=== PATIENT | female | born 1955 | race Caucasian/White ===

== ENCOUNTER 2020-03-23 11:09 | Outpatient (CLI) | payer MEDICARE, SELFPAY ==
--- NOTE | ~2020-03-23 | XR_ITS ---
EXAMINATION: XR cervical spine 4-5V DATE: 03/23/2020 11:33 INDICATION: Right-sided neck pain. TECHNIQUE: 4 views of cervical spine were obtained. COMPARISON: Cervical spine radiographs of 04/12/2017 FINDINGS: There is 6 degrees levocurvature of cervical spine. There is 2 mm anterolisthesis of C4 on C5 and 2 mm retrolisthesis of C5 on C6 and C6 on C7. Vertebral body heights are normal. There is mild ly decreased disc height at C3-C4 and severely decreased disc height at C5-C6 and C6-C7. There is mul tilevel facet joint osteoarthritis, severe on the right at C4-C5 and bilaterally at C3-C4. There is m ild central canal stenosis at C4-C5, C5-C6, and C6-C7. No prevertebral soft tissue swelling. IMPRESSION: 1. Severe cervical spondylosis. Reviewed, dictated and finalized at location B. 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
== END 2020-03-23 11:10 | disposition home or self-care (01) ==
PROVIDERS: PCP Family Medicine; Visit Provider Family Medicine
DX: M47.892 Other spondylosis, cervical region (principal)
CPT/HCPCS: 72050

== ENCOUNTER 2020-05-26 08:56 | Outpatient (CLI) | payer MEDICARE, SELFPAY ==
--- NOTE | 2020-05-26 11:30 | NEURO_ITS ---
Impression: # Complains of numbness of hands. # Right Carpal Tunnel Syndrome. # Mild evolving left Carpal Tunnel Syndrome. # No ulnar neuropathy. # Normal needle/EMG exam. Nerve Conduction Studies Anti Sensory Summary Table Stim Site NR Peak (ms) P-T Amp (?V) Site1 Site2 Delta-P (ms) Dist (cm) Shawn (m/s) Left Median Anti Sensory (2-3nd Digit) Wrist 3.4 37.6 Wrist 2-3nd Digit 3.4 14.0 41 Wrist 3.4 50.6 Wrist 2-3nd Digit 3.4 14.0 41 Right Median Anti Sensory (2-3nd Digit) Wrist 3.5 33.1 Wrist 2-3nd Digit 3.5 14.0 40 Wrist 3.4 26.2 Wrist 2-3nd Digit 3.5 14.0 40 Left Radial Anti Sensory (Base 1st Digit) Wrist 2.2 10.5 Wrist Base 1st Digit 2.2 0.0 Right Radial Anti Sensory (Base 1st Digit) Wrist 2.0 23.8 Wrist Base 1st Digit 2.0 0.0 Left Ulnar Anti Sensory (5th Digit) Wrist 2.6 17.4 Wrist 5th Digit 2.6 14.0 54 Right Ulnar Anti Sensory (5th Digit) Wrist 2.7 23.1 Wrist 5th Digit 2.7 14.0 52 Motor Summary Table Stim Site NR Onset (ms) O-P Amp (mV) Site1 Site2 Delta-0 (ms) Dist (cm) Shawn (m/s) Left Median Motor (Abd Poll Brev) Wrist 3.5 3.6 Elbow Wrist 4.4 26.0 59 Elbow 7.9 3.0 Right Median Motor (Abd Poll Brev) Wrist 4.1 1.6 Elbow Wrist 4.3 26.0 60 Elbow 8.4 3.0 Left Ulnar Motor (Abd Dig Minimi) Wrist 2.5 5.9 A Elbow Wrist 4.9 30.0 61 A Elbow 7.4 5.0 Right Ulnar Motor (Abd Dig Minimi) Wrist 2.3 6.0 A Elbow Wrist 4.6 27.0 59 A Elbow 6.9 5.3 F Wave Studies NR F-Lat (ms) L-R F-Lat (ms) Left Median (Mrkrs) (Abd Poll Brev) 29.22 0.33 Right Median (Mrkrs) (Abd Poll Brev) 29.55 0.33 Left Ulnar (Mrkrs) (Abd Dig Min) 29.58 0.28 Right Ulnar (Mrkrs) (Abd Dig Min) 29.30 0.28 EMG Side Muscle Nerve Root Ins Act Fibs Amp Dur Recrt Comment Right 1stDorInt Ulnar C8-T1 Nml Nml Nml Nml Nml Right Ext Indicis Radial (Post Int) C7-8 Nml Nml Nml Nml Nml Right Ext Digitorum Radial (Post Int) C7-8 Nml Nml Nml Nml Nml Right BrachioRad Radial C5-6 Nml Nml Nml Nml Nml Right PronatorTeres Median C6-7 Nml Nml Nml Nml Nml Right Abd Poll Brev Median C8-T1 Nml Nml Nml Nml Nml Left 1stDorInt Ulnar C8-T1 Nml Nml Nml Nml Nml Left Ext Indicis Radial (Post Int) C7-8 Nml Nml Nml Nml Nml Left Ext Digitorum Radial (Post Int) C7-8 Nml Nml Nml Nml Nml Left BrachioRad Radial C5-6 Nml Nml Nml Nml Nml Left PronatorTeres Median C6-7 Nml Nml Nml Nml Nml Left Abd Poll Brev Median C8-T1 Nml Nml Nml Nml Nml Left ABD Dig Min Ulnar C8-T1 Nml Nml Nml Nml Nml Right ABD Dig Min Ulnar C8-T1 Nml Nml Nml Nml Nml MTDD
== END 2020-05-26 08:57 | disposition home or self-care (01) ==
PROVIDERS: PCP Family Medicine; Visit Provider Family Medicine
DX: G62.9 Polyneuropathy, unspecified (principal); G56.03 Carpal tunnel syndrome, bilateral upper limbs
CPT/HCPCS: 95886; 95911

== ENCOUNTER → 2020-09-19 12:22 | Outpatient (CLI) | payer MEDICARE, SELFPAY ==
--- NOTE | ~2020-09-19 | XR_ITS ---
XR lumbar spine 2-3V DATE: 09/19/2020 13:10 INDICATION: Low back pain TECHNIQUE: AP, lateral, coned lateral lumbosacral views COMPARISON: 11/05/2012 lumbar spine FINDINGS: There is approximately 25 degrees rotatory levoscoliosis of the lumbar spine. There is severe degenerative disc disease in the lower thoracic and lumbar spine, including prominent eburnation and degenerative spurring as well as vacuum phenomenon at multiple levels. Prominent hypertrophic degenerative change at the lumbar apophyseal joints. There is a transitional first sacral vertebra with sacralization pseudoarthrosis on the right. The sa croiliac joints are normal. No fracture or bone destruction is evident. IMPRESSION: Approximately 25 degrees rotatory levoscoliosis of the lumbar spine with severe degenerat ekta disc disease throughout the lumbar and lower thoracic spine Transitional first sacral vertebra Reviewed, dictated and finalized at location A. IMPRESSION: Approximately 25 degrees rotatory levoscoliosis of the lumbar spine with severe degenerative disc disease throughout the lumbar and lower thoracic spine Transitional first sacral vertebra
== END ==
PROVIDERS: PCP Physician Assistant; Visit Provider Physician Assistant
DX: M51.36 Other intervertebral disc degeneration, lumbar region (principal)
CPT/HCPCS: 72100

== ENCOUNTER → 2020-10-04 17:13 | Outpatient (CLI) | payer MEDICARE, SELFPAY ==
--- NOTE | ~2020-10-04 | MR_ITS ---
EXAMINATION: MR lumbar spine wo con DATE: 10/04/2020 18:28 INDICATION: Low back pain. Lumbar radiculopathy. TECHNIQUE: Magnetic resonance imaging (MRI) of the lumbar spine was performed without intravenous con trast. Sequences included sagittal T2-weighted FSE, sagittal T2-weighted FS FSE, sagittal STIR FSE, s agittal T1-weighted FSE, and axial T2-weighted FSE. COMPARISON: Lumbar spine radiographs 09/19/2020 FINDINGS: There is 20 degrees levoscoliosis of lumbar spine. There is 3 mm retrolisthesis of T12 on L 1 and L1 on L2. There is severely decreased disc height from T9-T10 through L2-L3 and at L4-L5 with e ndplate remodeling. There is moderately decreased disc height at L3-L4 and L5-S1 with endplate remode ling. The distal spinal cord signal intensity is normal. The conus medullaris is at T12. The followin g disc levels are specifically discussed: L1-L2: The disc is bulging. There is severe right and mild left facet joint osteoarthritis. There is moderate right and mild left neural foraminal stenosis. There is mild central canal stenosis. L2-L3: The disc is bulging. There is severe right and moderate left facet joint osteoarthritis. There is mild bilateral neural foraminal stenosis. There is mild central canal stenosis. L3-L4: The disc is bulging and has an annular fissure. There is severe bilateral facet joint osteoart hritis. There is moderate bilateral neural foraminal stenosis. There is moderate central canal stenos is. L4-L5: The disc is bulging and has an annular fissure. There is severe bilateral facet joint osteoart hritis. There is mild right and moderate left neural foraminal stenosis. There is mild central canal stenosis. L5-S1: The disc is bulging. There is severe left facet joint osteoarthritis. There is mild left neura l foraminal stenosis. There is no central canal stenosis. IMPRESSION: 1. Severe thoracolumbar spondylosis. 2. Lumbar levoscoliosis. Reviewed, dictated and finalized at location B.
== END ==
PROVIDERS: PCP Family Medicine; Visit Provider Nurse Practitioner Adult Health
DX: M47.25 Other spondylosis with radiculopathy, thoracolumbar region (principal)
CPT/HCPCS: 72148

== ENCOUNTER 2020-10-20 08:32 | Outpatient (CLI) | payer MEDICARE, SELFPAY ==
--- NOTE | ~2020-10-20 | NM_ITS ---
EXAMINATION: NM roberto carlos stress w perfusion DATE: 10/20/2020 15:18 INDICATION: Chest pain TECHNIQUE: Rest images were obtained following intravenous administration of 10 mCi Tc99m tetrofosmin (Myoview). The patient was infused intravenously with Lexiscan (Regadenoson). Then, 31.1 mCi Tc99m t etrofosmin (Myoview) was administered intravenously, and stress images were obtained. Data was recons tructed into short axis and horizontal and vertical long axis SPECT images. Gated SPECT images were a lso obtained. COMPARISON: None. FINDINGS: There is no definite reversible or fixed perfusion abnormality to suggest ischemia or infar ction. There is normal left ventricular chamber size, wall motion and ejection fraction. Left ventr icular ejection fraction measures 63%. IMPRESSION: 1. Normal myocardial perfusion at rest and during stress. 2. Left ventricular ejection fraction measuring 63%. Reviewed, dictated and finalized at location A.
--- NOTE | 2020-10-20 08:57 | EST_ITS ---
Patient Info Name: Ann Genao Age: 65 years : 1955 Gender: Female Ht: 68 in Wt: 232 lbs BSA: 2.29 m2 Exam Date: 10/20/2020 9:54 AM Exam Location: [facility] Stress Patient Status: Outpatient Admit Date: 10/20/2020 Staff Ordering Physician: Darci Stubbs PA-C Attending Provider: Darci Stubbs PA-C Exercise Technologist: Concha Higgins RDCS Exercise Physician: Brijesh Bhat DO Exam Type: CA stress roberto carlos w NM Study Info Indications R07.9 - Chest pain, unspecified A regadenoson stress test was performed. Summary 1. 1. Negative lexiscan stress test for ischemic ST changes by ECG criteria. 2. 2. Stable hemodynamics throughout the test. 3. 3. Nuclear scan to follow and will be reported separately. Please correlate with it. 4. 4. Patient informed of the above results. Protocol: Lexiscan Stress ECG Details Stage: REST Duration (min): 7 min : 0 sec HR (bpm): 77 SBP (mmHg): 113 DBP (mmHg): 92 Stage: REST Duration (min): 13 min : 12 sec HR (bpm): 72 SBP (mmHg): 113 DBP (mmHg): 92 Stage: STAGE 1 Duration (min): 1 min : 0 sec HR (bpm): 93 SBP (mmHg): 131 DBP (mmHg): 99 Stage: RECOVERY Duration (min): 1 min : 0 sec HR (bpm): 95 SBP (mmHg): 139 DBP (mmHg): 93 Stage: RECOVERY Duration (min): 2 min : 0 sec HR (bpm): 92 SBP (mmHg): 139 DBP (mmHg): 93 Stage: RECOVERY Duration (min): 3 min : 0 sec HR (bpm): 83 SBP (mmHg): 140 DBP (mmHg): 89 Stage: RECOVERY Duration (min): 3 min : 5 sec HR (bpm): 87 SBP (mmHg): 140 DBP (mmHg): 89 Rest HR: 72 bpm Peak HR: 104 bpm Rest Sys BP: 113 mmHg Peak Sys BP: 140 mmHg Max Pred HR: 153 bpm % Max Pred HR: 68 % Target HR: 130 bpm Max RPP: 14,560 bpm*mmHg Termination Reason: Completed protocol Cardiac Symptoms: Shortness of breath Total Time: 1 min : 0 sec Rest Fam BP: 92 mmHg Peak Fam BP: 89 mmHg Total Dose: 0.4 mg Resting ECG Sinus rhythm. Stress ECG No ST changes. Arrhythmias None. Report Signatures
== END 2020-10-20 08:33 | disposition home or self-care (01) ==
PROVIDERS: PCP Family Medicine; Visit Provider Physician Assistant
DX: R07.9 Chest pain, unspecified (principal)
CPT/HCPCS: 78452; 93017; A9502; J2785

== ENCOUNTER → 2020-10-26 13:10 | Outpatient (CLI) | payer MEDICARE, SELFPAY ==
--- NOTE | ~2020-10-26 | MR_ITS ---
EXAMINATION: MR cervical spine wo con EXAM DATE: 10/26/2020 13:55 INDICATION: Neck pain, right arm pain. TECHNIQUE: Multi-sequential, multiplanar MR images of the cervical spine were obtained without contra st. Axial T2, axial T2 MERGE sequence. Sagittal T1, T2, T2 fat saturation images also obtained. Cor relation is made to cervical x-ray 03/23/2020. FINDINGS: There is severe disc disease C5-6 and C6-7. There is 2 mm retrolisthesis C5 on C6, 2 mm an terolisthesis C4 on C5 and C7 on T1. Partial fusion of the C3-4 vertebral bodies and fused facet join ts. The spinal cord signal intensity and intrinsic morphology is normal. Cervicomedullary junction is normal in appearance. There are no suspicious marrow signal abnormalities. Paraspinal soft tissue i s unremarkable. Level by level evaluation: C2-C3: Disc does not extend beyond the endplate margin. Uncovertebral joint arthropathy: None. Facet joint arthropathy: Moderate. Neural foraminal stenosis: No stenosis. Central canal stenosis: No stenosis. C3-C4: This level is fused Uncovertebral joint arthropathy: Mild right, but fused. Facet joint arthropathy: Mild to moderate right, but fused. Neural foraminal stenosis: Mild right. Central canal stenosis: No stenosis. C4-C5: There is a mild diffuse disc bulge. Uncovertebral joint arthropathy: Mild to moderate bilateral right greater than left. Facet joint arthropathy: Severe right, mild left. Neural foraminal stenosis: Moderate right, mild left. Central canal stenosis: No stenosis. C5-C6: There is a mild to moderate diffuse disc bulge asymmetric to the right. Uncovertebral joint arthropathy: Severe left, moderate to severe right. Facet joint arthropathy: Moderate bilateral. Neural foraminal stenosis: Severe left, moderate right. Central canal stenosis: Mild. C6-C7: There is a mild to moderate diffuse disc bulge. Uncovertebral joint arthropathy: Severe bilateral. Facet joint arthropathy: Moderate bilateral. Neural foraminal stenosis: Severe left, moderate to severe right. Central canal stenosis: Mild. C7-T1: Disc does not extend beyond the endplate margin. Uncovertebral joint arthropathy: Moderate left, mild right. Facet joint arthropathy: Moderate bilateral. Neural foraminal stenosis: No stenosis. Central canal stenosis: No stenosis. IMPRESSION: 1. Significant spondylosis C5-6 and 6-7. Reviewed, dictated and finalized at location B.
== END ==
PROVIDERS: PCP Family Medicine; Visit Provider Nurse Practitioner Adult Health
DX: M47.22 Other spondylosis with radiculopathy, cervical region (principal)
CPT/HCPCS: 72141

== ENCOUNTER 2021-03-14 13:57 | Outpatient (CLI) | payer MEDICARE, SELFPAY | END 2021-03-14 13:58 | disposition home or self-care (01) | LOC: ANHBWCAUD 13:59 | PROVIDERS: PCP Family Medicine; Visit Provider Family Medicine | DX: H90.3 Sensorineural hearing loss, bilateral (principal) | CPT/HCPCS: 92557; 92567 ==

== ENCOUNTER → 2021-05-15 10:05 | Outpatient (CLI) | payer MEDICARE, SELFPAY ==
--- NOTE | ~2021-05-15 | XR_ITS ---
XR wrist LT min 3V DATE: 05/15/2021 10:37 INDICATION: Left wrist pain. Primary osteoarthritis. TECHNIQUE: 4 views COMPARISON: None FINDINGS: No fracture, dislocation, periosteal reaction or bone destruction, erosive change or chondr ocalcinosis. IMPRESSION: No significant abnormality Reviewed, dictated and finalized at location A. AL TESTER IMPRESSION: No significant abnormality
--- NOTE | ~2021-05-15 | XR_ITS ---
XR wrist RT min 3V DATE: 05/15/2021 10:37 INDICATION: Pain. Primary osteoarthritis. TECHNIQUE: 4 views COMPARISON: None FINDINGS: There is prominent joint space narrowing as well as some spurring at the first carpometacar pal joint consistent with osteoarthritis. The remaining joints are preserved. No erosive change or ch ondrocalcinosis. No fracture, dislocation, periosteal reaction or bone destruction of the right wrist is detected. IMPRESSION: Osteoarthritis at first carpometacarpal joint Reviewed, dictated and finalized at location A. OPERATOR
== END ==
PROVIDERS: PCP Family Medicine; Visit Provider Plastic Surgery
DX: M19.031 Primary osteoarthritis, right wrist (principal); M19.032 Primary osteoarthritis, left wrist
CPT/HCPCS: 73110

== ENCOUNTER 2021-05-23 14:53 | Outpatient (CLI) | payer MEDICARE, SELFPAY ==
--- NOTE | ~2021-05-23 | XR_ITS ---
EXAMINATION: XR tibia fibula RT 2V INDICATION: Chronic right proximal anterior leg pain TECHNIQUE: Two views of the right tibia and fibula are obtained on three radiographs. COMPARISON: None available FINDINGS: Bone alignment is normal. There is no fracture. There is mild osteoarthritis at the knee an d ankle. The bones are otherwise unremarkable. The soft tissues are normal. IMPRESSION: 1. No radiographic correlate for the patient's symptoms. Reviewed, dictated and finalized at location F. CE ACADEMY PROGRAM COORDINATOR
== END 2021-05-23 14:54 | disposition home or self-care (01) ==
LOC: ANHBWCIMG 14:57
PROVIDERS: PCP Family Medicine; Visit Provider Family Medicine
DX: M89.8X6 Other specified disorders of bone, lower leg (principal)
CPT/HCPCS: 73590

== ENCOUNTER 2021-07-13 14:48 | Outpatient (CLI) | payer MEDICARE, SELFPAY ==
[2021-07-13 19:12] LABS: Hematocrit 37.1 % (37.0-47.0); Hemoglobin 12.9 g/dL (12.0-15.0); Mean Corpuscular HGB Conc 34.8 g/dl (32-36); Mean Corpuscular Hemoglobin 29.6 pg (26-34); Mean Corpuscular Volume 85.1 fl (80-100); Mean Platelet Volume 11.2 fl (7.4-10.4); Platelet Count Result 383 k/mm3 (150-375); Red Blood Count 4.36 M/mm3 (4.2-5.4); Red Cell Distribution Width 14.1 % (11.5-14.5); White Blood Count 9.9 K/mm3 (4.5-10.0)
[2021-07-13 19:45] LABS: Add Urine Microscopic? YES; Appearance Urine Cloudy (Clear); Bilirubin Urine Negative (Negative); Blood Urine Negative (Negative); Color Urine Yellow (Yellow); Glucose Urine UA Negative (Negative); Ketones Urine Negative (Negative); Leukocyte Esterase Ur Trace LEU/UL (NEGATIVE); Nitrate Urine Negative (Negative); Protein Urine Negative (Negative); RBC Urine 0-2 /hpf (0-2); Specific Grav Ur 1.011 (1.001-1.035); Squamous Epithelial Cell Urine Rare /hpf (Few); Urobilinogen Urine Negative mg/dL (<2.0)
[2021-07-13 19:56] LABS: Alanine Aminotransferase 24 U/L (4-35); Albumin Level 4.1 g/dL (3.5-5.1); Alkaline Phosphatase 96 U/L (38-126); Anion Gap 11 mmol/L (8-16); Aspartate Amino Transferase 36 U/L (14-36); Bilirubin,Total 0.5 mg/dL (0.2-1.3); Blood Urea Nitrogen 11 mg/dL (7-17); CRP < 0.5 mg/dL (<1.0); Calcium 9.2 mg/dL (8.4-10.2); Carbon Dioxide 24 mmol/L (22-30); Chloride 101 mmol/L (98-107); Estimated Glomerular Filt Rate > 60; Glucose 102 mg/dL (65-110); Potassium 3.7 mmol/L (3.4-5.0); Sodium 136 mmol/L (137-145)
[2021-07-13 20:12] LABS: Erythrocyte Sedimentation Rate 44 mm/hr (0-20)
[2021-07-13 21:13] LABS: Cholesterol 151 mg/dL (0-200); HDL Direct 61 mg/dL; Triglycerides 203 mg/dL (<150)
[2021-07-13 21:23] LABS: LDL Cholesterol Direct 40 mg/dL
[2021-07-17 19:54] LABS: ANA Cascade Screen Negative (Negative)
== END 2021-07-13 14:49 | disposition home or self-care (01) ==
PROVIDERS: PCP Family Medicine; Visit Provider Family Medicine
DX: N30.90 Cystitis, unspecified without hematuria (principal); M25.519 Pain in unspecified shoulder; M54.16 Radiculopathy, lumbar region; R51.9 Headache, unspecified; R31.9 Hematuria, unspecified; E11.9 Type 2 diabetes mellitus without complications; R53.83 Other fatigue
CPT/HCPCS: 36415; 80053; 80061; 81001; 84443; 85027; 85652; 86038; 86140; 87077; 87086; 87088

== ENCOUNTER 2021-10-25 11:49 | Outpatient (CLI) | payer MEDICARE, SELFPAY ==
--- NOTE | ~2021-10-25 | XR_ITS ---
XR shoulder RT min 2V DATE: 10/25/2021 12:04 INDICATION: Right shoulder pain TECHNIQUE: 4 views COMPARISON: None FINDINGS: No fracture or dislocation, periosteal reaction or bone destruction. Normal alignment at th e miya clavicular and glenohumeral joints. IMPRESSION: No significant abnormality Reviewed, dictated and finalized at location A. IMPRESSION: No significant abnormality
== END 2021-10-25 11:50 | disposition home or self-care (01) ==
PROVIDERS: PCP Family Medicine; Visit Provider Family Medicine
DX: M25.511 Pain in right shoulder (principal)
CPT/HCPCS: 73030

== ENCOUNTER 2022-03-27 14:41 | Outpatient (CLI) | payer MEDICARE, SELFPAY ==
[2022-03-27 18:55] LABS: Appearance Urine Slightly Cloudy (Clear); Bilirubin Urine Negative (Negative); Blood Urine Trace-intact (Negative); Color Urine Yellow (Yellow); Glucose Urine UA Negative (Negative); Ketones Urine Negative (Negative); Leukocyte Esterase Ur Trace LEU/UL (Negative); Nitrate Urine Positive (Negative); Protein Urine Negative (Negative); Urobilinogen Urine 0.2 mg/dL (<2.0); pH Urine 6.5 (5.0-9.0)
[2022-03-27 19:09] LABS: Bacteria Urine Trace /hpf; Mucus Urine Few /lpf; RBC Urine 0-2 /hpf (0-2); Squamous Epithelial Cell Urine Rare /hpf (Few); WBC Urine 51-75 /hpf
[2022-03-27 19:12] LABS: Add Urine Microscopic? YES
== END 2022-03-27 14:42 | disposition home or self-care (01) ==
PROVIDERS: PCP Family Medicine; Visit Provider Family Medicine
DX: R31.9 Hematuria, unspecified (principal)
CPT/HCPCS: 81001; 87077; 87086; 87186

== ENCOUNTER 2022-04-07 13:08 | Outpatient (CLI) | payer MEDICARE, SELFPAY ==
--- NOTE | ~2022-04-07 | MM_ITS ---
EXAMINATION: MM screening christen BI w micheal HISTORY: Screening mammogram TECHNIQUE: Craniocaudal and mediolateral oblique 3-D tomosynthesis images were obtained and synthetic 2-D images were generated. CAD analysis was submitted and interpreted. COMPARISON: 06/17/2018, 04/24/2016, 03/02/2015 bilateral screening mammogram examinations BREAST PARENCHYMAL COMPOSITION: The breasts are almost entirely fatty. FINDINGS: There are scattered bilateral benign calcifications. There is no evidence of suspicious mas s, calcification, or architectural distortion to suggest malignancy in either breast. There has been no suspicious interval change. IMPRESSION: 1. No mammographic evidence of malignancy. 2. Recommend routine screening mammography in one year. BI-RADS Category 2: Benign finding(s). Reviewed, dictated and finalized at location A. CTOR OF MARKETING AND PROMOTIONS
== END 2022-04-07 13:09 | disposition home or self-care (01) ==
LOC: ANHIMG 13:13
PROVIDERS: PCP Family Medicine; Visit Provider Family Medicine
DX: Z12.31 Encounter for screening mammogram for malignant neoplasm of breast (principal)
CPT/HCPCS: 77063; 77067

== ENCOUNTER 2022-07-17 11:00 | Outpatient (RCR) | payer MEDICARE, SELFPAY ==
[2022-07-17 11:05] VITALS: BMI 38.5
[2022-07-17 13:06] VITALS: BMI 38.5
== END 2022-09-27 08:30 | disposition home or self-care (01) ==
LOC: ANHDMC 11:00
PROVIDERS: PCP Family Medicine; Visit Provider Nurse Practitioner Family
DX: E11.42 Type 2 diabetes mellitus with diabetic polyneuropathy (principal); Z71.89 Other specified counseling; Z71.3 Dietary counseling and surveillance
CPT/HCPCS: 97802; G0108

== ENCOUNTER 2022-09-24 10:33 | Outpatient (CLI) | payer MEDICARE, SELFPAY ==
[2022-09-24 19:54] LABS: Hematocrit 40.8 % (37.0-47.0); Hemoglobin 12.9 g/dL (12.0-15.0); Mean Corpuscular HGB Conc 31.6 g/dl (32-36); Mean Corpuscular Hemoglobin 27.5 pg (26-34); Mean Platelet Volume 11.3 fl (7.4-10.4); Platelet Count Result 353 k/mm3 (150-375); Red Blood Count 4.69 M/mm3 (4.2-5.4); Red Cell Distribution Width 14.3 % (11.5-14.5); White Blood Count 7.1 K/mm3 (4.5-10.0)
[2022-09-24 22:20] LABS: Alanine Aminotransferase 27 U/L (6-35); Albumin Level 4.2 g/dL (3.5-5.1); Alkaline Phosphatase 102 U/L (38-126); Anion Gap 9 mmol/L (8-16); Aspartate Amino Transferase 57 U/L (14-36); Bilirubin,Total 0.6 mg/dL (0.2-1.3); Blood Urea Nitrogen 11 mg/dL (7-17); Calcium 9.4 mg/dL (8.4-10.2); Carbon Dioxide 27 mmol/L (22-30); Chloride 101 mmol/L (98-107); Cholesterol 234 mg/dL (0-200); Estimated Glomerular Filt Rate > 60; Glucose 182 mg/dL (65-110); HDL Direct 60 mg/dL; Potassium 3.6 mmol/L (3.4-5.0); Sodium 137 mmol/L (137-145); Triglycerides 171 mg/dL (<150)
[2022-09-24 23:19] LABS: LDL Cholesterol Direct 106 mg/dL
[2022-09-24 23:38] LABS: Hemoglobin A1C 7.1 % (<5.7)
== END 2022-09-24 10:34 | disposition home or self-care (01) ==
LOC: ANHBWCLAB 10:34
PROVIDERS: PCP Family Medicine; Visit Provider Family Medicine
DX: E11.42 Type 2 diabetes mellitus with diabetic polyneuropathy (principal); I25.10 Atherosclerotic heart disease of native coronary artery without angina pectoris; R53.83 Other fatigue; L29.9 Pruritus, unspecified; R21 Rash and other nonspecific skin eruption; T78.40XA Allergy, unspecified, initial encounter
CPT/HCPCS: 36415; 80053; 80061; 83036; 85027; 86003

== ENCOUNTER 2023-02-18 11:18 | Outpatient (CLI) | payer MEDICARE, SELFPAY ==
[2023-02-18 20:19] LABS: Appearance Urine Clear (Clear); Bilirubin Urine Negative (Negative); Blood Urine Negative (Negative); Color Urine Yellow (Yellow); Glucose Urine UA Negative (Negative); Ketones Urine Negative (Negative); Leukocyte Esterase Ur Negative LEU/UL (Negative); Nitrate Urine Negative (Negative); Protein Urine Negative (Negative); Urobilinogen Urine 0.2 mg/dL (<2.0)
[2023-02-18 20:22] LABS: Add Urine Microscopic? NO
== END 2023-02-18 11:19 | disposition home or self-care (01) ==
PROVIDERS: PCP Nurse Practitioner Adult Health; Visit Provider Nurse Practitioner Adult Health
DX: R39.9 Unspecified symptoms and signs involving the genitourinary system (principal)
CPT/HCPCS: 81003

== ENCOUNTER 2023-06-13 11:13 | Outpatient (CLI) | payer MEDICARE, SELFPAY ==
--- NOTE | ~2023-06-13 | XR_ITS ---
XR hip LT min 2V DATE: 06/13/2023 11:25 INDICATION: Left hip pain TECHNIQUE: AP and lateral views COMPARISON: None FINDINGS: Battery pack overlies the left iliac area. Lumbar levoscoliosis and prominent degenerative disc disease at the included L4-5 and L5-S1. Normal alignment at the pubic symphysis and sacroiliac joints. Moderately prominent left joint space narrowing and mild spurring consistent with moderate left hip o steoid arthritis. No fracture, dislocation, avascular necrosis or bone destruction of the left hip is detected. IMPRESSION: Moderate left hip osteoarthritis Levoscoliosis and degenerative disc disease of the lumbar spine Reviewed, dictated and finalized at location L. 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
[2023-06-13 18:58] LABS: Creatine Kinase 84 U/L (30-135)
[2023-06-13 19:31] LABS: Erythrocyte Sedimentation Rate 38 mm/hr (0-20)
[2023-06-13 19:33] LABS: Appearance Urine Clear (Clear); Bacteria Urine None Seen /hpf; Bilirubin Urine Negative (Negative); Blood Urine Negative (Negative); Color Urine Yellow (Yellow); Glucose Urine UA Negative (Negative); Ketones Urine Negative (Negative); Leukocyte Esterase Ur 2+ LEU/UL (NEGATIVE); Nitrate Urine Negative (Negative); Protein Urine Negative (Negative); RBC Urine 0-2 /hpf (0-2); Specific Grav Ur 1.013 (1.001-1.035); Squamous Epithelial Cell Urine Moderate /hpf (Few); WBC Urine 0-5 /hpf (0-3)
[2023-06-13 19:35] LABS: Add Urine Microscopic? YES
== END 2023-06-13 11:14 | disposition home or self-care (01) ==
PROVIDERS: PCP Nurse Practitioner Adult Health; Visit Provider Nurse Practitioner Adult Health
DX: M16.12 Unilateral primary osteoarthritis, left hip (principal); M51.36 Other intervertebral disc degeneration, lumbar region; M79.10 Myalgia, unspecified site; M25.50 Pain in unspecified joint; R53.83 Other fatigue
CPT/HCPCS: 36415; 73502; 81001; 82550; 85652

== ENCOUNTER 2023-08-20 11:07 | Outpatient (CLI) | payer MEDICARE, SELFPAY ==
[2023-08-20 19:16] LABS: Appearance Urine Clear (Clear); Bilirubin Urine Negative (Negative); Blood Urine Negative (Negative); Color Urine Yellow (Yellow); Glucose Urine UA Negative (Negative); Ketones Urine Negative (Negative); Leukocyte Esterase Ur Negative LEU/UL (Negative); Nitrate Urine Negative (Negative); Protein Urine Negative (Negative)
[2023-08-20 19:29] LABS: Add Urine Microscopic? NO
== END 2023-08-20 11:08 | disposition home or self-care (01) ==
LOC: ANHBWCLAB 11:08
PROVIDERS: PCP Nurse Practitioner Adult Health; Visit Provider Nurse Practitioner Adult Health
DX: R39.9 Unspecified symptoms and signs involving the genitourinary system (principal)
CPT/HCPCS: 81003

== ENCOUNTER 2023-09-18 12:22 | Outpatient (CLI) | payer MEDICARE, SELFPAY ==
[2023-09-18 20:56] LABS: Hematocrit 40.8 % (37.0-47.0); Hemoglobin 12.9 g/dL (12.0-15.0); Mean Corpuscular HGB Conc 31.6 g/dl (32-36); Mean Corpuscular Hemoglobin 27.4 pg (26-34); Mean Corpuscular Volume 86.8 fl (80-100); Mean Platelet Volume 11.7 fl (7.4-10.4); Platelet Count Result 344 k/mm3 (150-375); Red Cell Distribution Width 14.8 % (11.5-14.5); White Blood Count 8.7 K/mm3 (4.5-10.0)
[2023-09-18 21:08] LABS: Alanine Aminotransferase 30 U/L (6-35); Albumin Level 4.3 g/dL (3.5-5.1); Alkaline Phosphatase 108 U/L (38-126); Anion Gap 6 mmol/L (4-12); Aspartate Amino Transferase 98 U/L (14-36); Bilirubin,Total 0.7 mg/dL (0.2-1.3); Blood Urea Nitrogen 9 mg/dL (7-17); Calcium 9.3 mg/dL (8.4-10.2); Carbon Dioxide 29 mmol/L (22-30); Chloride 99 mmol/L (98-107); Estimated Glomerular Filt Rate > 60; Glucose 185 mg/dL (65-110); Potassium 3.1 mmol/L (3.4-5.0); Sodium 134 mmol/L (137-145)
== END 2023-09-18 12:23 | disposition home or self-care (01) ==
PROVIDERS: PCP Nurse Practitioner Adult Health; Visit Provider Nurse Practitioner Adult Health
DX: R53.83 Other fatigue (principal)
CPT/HCPCS: 36415; 80053; 84443; 85027

== ENCOUNTER 2023-09-19 12:40 | Outpatient (CLI) | payer MEDICARE, SELFPAY ==
[2023-09-19 19:23] LABS: Potassium 2.9 mmol/L (3.4-5.0)
== END 2023-09-19 12:41 | disposition home or self-care (01) ==
LOC: ANHBWCLAB 12:41
PROVIDERS: PCP Nurse Practitioner Adult Health; Visit Provider Nurse Practitioner Adult Health
DX: E87.6 Hypokalemia (principal)
CPT/HCPCS: 36415; 84132

== ENCOUNTER 2023-12-05 10:24 | Outpatient (CLI) | payer MEDICARE, SELFPAY ==
[2023-12-05 19:24] LABS: Appearance Urine Cloudy (Clear); Bacteria Urine 4+ /hpf; Bilirubin Urine Negative (Negative); Blood Urine Trace (Negative); Color Urine Yellow (Yellow); Glucose Urine UA 3+ mg/dL (Negative); Ketones Urine Negative (Negative); Leukocyte Esterase Ur 2+ LEU/UL (Negative); Need Manual Microscopic Reviewed; Nitrate Urine Negative (Negative); Protein Urine Negative (Negative); RBC Urine 0-2 /hpf (0-2); Specific Grav Ur 1.014 (1.001-1.035); Squamous Epithelial Cell Urine None Seen /hpf (Few); Urobilinogen Urine 0.2 mg/dL (<2.0); WBC Urine >100 /hpf (0-3)
[2023-12-05 19:26] LABS: Add Urine Microscopic? YES
== END 2023-12-05 10:25 | disposition home or self-care (01) ==
PROVIDERS: PCP Nurse Practitioner Adult Health; Visit Provider Nurse Practitioner Family
DX: M54.9 Dorsalgia, unspecified (principal)
CPT/HCPCS: 81001; 87077; 87086; 87088; 87186

== ENCOUNTER 2023-12-11 10:57 | Outpatient (CLI) | payer MEDICARE, SELFPAY ==
[2023-12-11 20:18] LABS: Potassium 3.5 mmol/L (3.4-5.0)
== END 2023-12-11 10:58 | disposition home or self-care (01) ==
PROVIDERS: PCP Nurse Practitioner Adult Health; Visit Provider Obstetrics & Gynecology
DX: E87.6 Hypokalemia (principal)
CPT/HCPCS: 36415; 84132

== ENCOUNTER 2024-03-31 13:00 | Outpatient (RCR) | payer MEDICARE, SELFPAY ==
[2024-03-31 13:04] VITALS: BMI 36.2
[2024-03-31 13:09] VITALS: BMI 36.2
== END 2024-06-08 09:53 | disposition home or self-care (01) ==
LOC: ANHDMC 13:00
PROVIDERS: PCP Nurse Practitioner Adult Health; Visit Provider Internal Medicine Endocrinology, Diabetes & Metabolism
DX: E11.65 Type 2 diabetes mellitus with hyperglycemia (principal); E11.42 Type 2 diabetes mellitus with diabetic polyneuropathy; I10 Essential (primary) hypertension; E55.9 Vitamin D deficiency, unspecified; Z71.89 Other specified counseling; Z71.3 Dietary counseling and surveillance
CPT/HCPCS: 97802; G0108

== ENCOUNTER 2024-07-23 15:10 | Outpatient (CLI) | payer MEDICARE, SELFPAY ==
--- OUTSIDE RECORDS SUMMARY | 2024-07-23 17:02 | XMS_ITS | Clinical Summary ---
Author Organization [facility] Address [address] [place] [address] Care Team Providers Care General House Worker Name Role Phone Wade Meyers MD Primary Care Provider [phone] Allergies Active Allergy Reactions Criticality Noted Date Comments Codeine Nausea and Vomiting 10/19/2018 Penicillins Rash Low 10/19/2018 Sulfa Antibiotics Rash,Itching Low 10/19/2018 Medications hydrocodone-lasha taminophen 5-325 MG tablet Take 1 tablet by mouth every 6 (six) hours as needed for Pain. Active warfarin 2.5 MG tablet Take 2.5 mg by mouth daily. Active paroxetine 40 MG tablet Take 40 mg by mouth every morning. Active lisinopril-hydr ochlorothiazide 10-12.5 MG tablet Take 1 tablet by mouth daily. Active zolpidem 10 MG tablet Take 10 mg by mouth nightly as needed for Sleep. Active nystatin ointment Apply topically 2 (two) times daily. Active ALPRAZolam 0.5 MG tablet Take 0.5 mg by mouth nightly as needed for Sleep. Active omeprazole 40 MG capsule Take 40 mg by mouth daily. Active gabapentin 600 MG tablet Take 600 mg by mouth 2 (two) times daily. Active atorvastatin 40 MG tablet Take 40 mg by mouth nightly at bedtime. Active SITagliptin-met FORMIN HCl (JANUMET) 50-500 MG Tab Take 1 tablet by mouth 2 (two) times daily with meals. Active glimepiride 4 MG tablet Take 4 mg by mouth every morning before breakfast. Active traMADol 50 MG tablet Take 50 mg by mouth every 6 (six) hours as needed for Pain. Active Cholecalciferol (VITAMIN D) 2000 units Tab Activ e vitamin B-12 (CYANOCOBALAMIN ) 1000 mcg tablet Take 1,000 mcg by mouth daily. Active methylPREDNISol one, IRINA, (MEDROL) 4 MG tablet Follow package directions 1 each 9 Active clobetasol 0.05 % cream Apply topically 2 (two) times daily as needed. To rash covering entire body 60 g 9 Active Social History Tobacco Use Types Packs/Day Years Used Date Smoking Tobacco: Never Smokeless Tobacco: Never Alcohol Use Standard Drinks/Week Comments No 0 (1 standard drink = 0.6 oz pur e alcohol) AUDIT-C Answer Date Recorded Frequency of Alcohol Consumption Never 10/19/2018 Average Number of Drinks Not on file 019 Frequency of Binge Drinking Not on file 01/2019 Comments Unknown Sex and Gender Information Value Date Recorded Sex Assigned at Not on file Legal Sex Female 1:45 PM CDT Gender Identity Not on file Sexual Orientation Not on file Last Filed Vital Signs Vital Sign Reading Time Taken Comments Blood Pressure 129/83 10/19/2018 4:06 PM CDT Pulse 81 10/19/2018 4:06 PM CDT Temperature 36.4 C (97.5 F) 10/19/2018 2:41 PM CDT Respiratory Rate 20 10/19/2018 4:06 PM CDT Oxygen Saturation 95% 10/19/2018 4:06 PM CDT Inhaled Oxygen Concentration - - Weight 118.8 kg (262 lb) 10/19/2018 2:41 PM CDT Height 172.7 cm (5' 8 ) 10/19/2018 2:41 PM CDT Body Mass Index 39.84 10/19/2018 2:41 PM CDT Plan of Treatment Health Maintenance Due Date Last Done Comments Colorectal Cancer Screening Colonoscopy (10 Years) 1955 Hepatitis C 1971 DTaP, Tdap and Td Vaccines (1 - Tdap) 1972 Mammogram Screening 1993 Annual Medicare Wellness Visit 2018 Dexa Scan (General) 2018 Pneumococcal Vaccine: 65+ Years (2 of 2 - PCV) 01/17/2020 01/16/2019 COVID-19 Vaccine (3 - season) 2024 09/28/2020, 08/11/2020 Influenza Adult (#1) 2024 04/12/2021, 03/02/2020, 01/16/2019, Additional history exists RSV Immunization or 60+ Years (1 - 1-dose 75+ series) 2028 Zoster Vaccines Completed 12/21/2020, 03/07/2020 Meningococcal B Vaccine Aged Out No l onger eligible based on patient's age to complete this topic Meningococcal Vaccine Aged Out No juliane vera eligible based on patient's age to complete this topic RSV Immunizations Under 20 Months Aged Out No longer eligible based on patient's age to complete this topic Insurance [employer] [facility] Care Teams General House Worker Relationship Specialty Start Date End Date Wade Meyers MD [address] [place] [address] PCP - General FAMILY PRACTICE 06/27/21
--- OUTSIDE RECORDS SUMMARY | 2024-07-23 17:02 | XMS_ITS | Encounter Summary ---
Author Organization [employer] Address 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
--- OUTSIDE RECORDS SUMMARY | 2024-07-23 17:02 | XMS_ITS | Encounter Summary ---
Author Organization [employer] Address 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
--- OUTSIDE RECORDS SUMMARY | 2024-07-23 17:02 | XMS_ITS | Encounter Summary ---
Author Organization [employer] Address 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
--- OUTSIDE RECORDS SUMMARY | 2024-07-23 17:02 | XMS_ITS | Clinical Summary ---
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
--- OUTSIDE RECORDS SUMMARY | 2024-07-23 17:02 | XMS_ITS | Encounter Summary ---
Author Organization [employer] Address 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
--- OUTSIDE RECORDS SUMMARY | 2024-07-23 17:02 | XMS_ITS | Clinical Summary ---
Author Organization [facility] Address [address] [place] [address] Phone Care Team Providers Care Purchasing Specialist Name Role Phone Wade Meyers MD Primary Care Provider [phone] Allergies Active Allergy Reactions Criticality Noted Date Comments Codeine Nausea,Unknown 2016 Penicillins Itching,Unknown 2016 Sulfa Antibiotics Itching 2016 Medications gabapentin (NEURONTIN) 300 MG Capsule Take 1 Cap by mouth 3 times daily. 04/10/2016 Active glimepiride (AMARYL) 4 MG Tablet Take 4 mg by mouth daily. 01/31/2016 Active lisinopril-hydro CHLOROthiazide (PRINZIDE, ZESTORETIC) 20-12.5 MG Tablet Take 1 Tab by mouth daily. 02/17/2016 Active omeprazole (PRILOSEC) 40 MG CAPSULE DELAYED RELEASE Take 1 Cap by mouth daily. 01/31/2016 Active PARoxetine (PAXIL) 40 MG Tablet Take 1 Tab by mouth daily. 01/31/2016 Active warfarin (COUMADIN) 2.5 MG Tablet Take 1 Tab by mouth daily. 02/17/2016 Active zolpidem (AMBIEN) 10 MG Tablet Take 10 mg by mouth daily. 04/30/2016 Active atorvastatin (LIPITOR) 40 MG Tablet Take 1 Tab by mouth daily. 04/10/2016 Active HYDROmorphone (DILAUDID) 2 MG Tablet Take 1 Tab by mouth every 3 hours as needed. 30 Tab 0 05/30/2016 Active Family History Medical History Relation Name Comments Heart Attack Father Heart Attack Mother Relation Name Status Comments Father Mother Social History Tobacco Use Types Packs/Day Years Used Date Smoking Tobacco: Never Smokeless Tobacco: Never Alcohol Use Standard Drinks/Week Comments No 0 (1 standard drink = 0.6 oz pur e alcohol) Comments Unknown Sex and Gender Information Value Date Recorded Sex Assigned at Not on file Legal Sex Female 11:41 PM CDT Gender Identity Not on file Sexual Orientation Not on file Last Filed Vital Signs Vital Sign Reading Time Taken Comments Blood Pressure 120/82 05/30/2016 11:45 AM OVERAGE SHORTAGE AND DAMAGE CLERK Pulse 72 05/30/2016 11:45 AM OVERAGE SHORTAGE AND DAMAGE CLERK Temperature 36.2 C (97.2 F) 05/30/2016 11:45 AM OVERAGE SHORTAGE AND DAMAGE CLERK Respiratory Rate 16 05/30/2016 11:45 AM OVERAGE SHORTAGE AND DAMAGE CLERK Oxygen Saturation 96% 05/30/2016 11:45 AM OVERAGE SHORTAGE AND DAMAGE CLERK Inhaled Oxygen Concentration - - Weight 124.3 kg (274 lb) 2016 9:00 AM OVERAGE SHORTAGE AND DAMAGE CLERK Height 172.7 cm (5' 8 ) 2016 9:00 AM OVERAGE SHORTAGE AND DAMAGE CLERK Body Mass Index 41.66 2016 9:00 AM OVERAGE SHORTAGE AND DAMAGE CLERK Plan of Treatment Health Maintenance Due Date Last Done Comments DEXA Bone Density 1955 Hepatitis C Virus (HCV) Screening 1955 TdaP Immunization 1955 Colonoscopy 1998 Colorectal Cancer Screening 1998 Cologuard 2003 Immunochemical Fecal Occult Blood 2003 Mammogram 2003 Pneumococcal Immunization (5 0+ years) (1 of 1 - PCV) 2003 Zoster Immunization (1 of 2) 2003 Influenza Immunization (#1) 2024 SARS-COV-2 Immunization (1 - 2023-25 season) 2024 Respiratory Syncytial Virus (RSV) Immunization (Adult) (1 - 1-dose 75+ series) 2028 Hepatitis B Immunization Aged Out No longer eligible based on patient's age to complete this topic Meningococcal Immunization (ACWY) Aged Out No longer eligible based on patient's age to complete this topic Rotavirus Immunization Aged Out No lo nger eligible based on patient's age to complete this topic Medical Devices Implanted Type Area Document Review Specialist Device Identifier Shelf Expiration Date Model / Serial / Lot K-Wire Plain .062 - [id number] Implanted:Qty: 2 on 05/30/2016 by Edson Mays DPM at [facility] IMPLANT Right: Foot [employer] [id number] / / [id number] Trilliant 0.045 Double End K-Wire Implanted:Qty: 1 on 05/30/2016 by Edson Mays DPM at [facility] Right: Toe [id number] / / [id number] 3.4 X 10mm Ht Implant Implanted:Qty: 1 on 05/30/2016 by Edson Mays DPM at [facility] Right: Toe / / Description:[facility] Insurance MEDICARE [facility] on file Care Teams Purchasing Specialist Relationship Specialty Start Date End Date Wade Meyers MD [address] [place] [address] PCP - General Family Medicine 05/23/16
--- OUTSIDE RECORDS SUMMARY | 2024-07-23 17:02 | XMS_ITS | Encounter Summary ---
Author Organization [facility] Address 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
--- OUTSIDE RECORDS SUMMARY | 2024-07-23 17:02 | XMS_ITS | Clinical Summary ---
Author Organization [facility] Address [address] [place] [address] Care Team Providers Care Streetsweeper Operator Name Role Phone Lenin Hirsch MD Primary Care Provider [phone] [phone] Allergies Active Allergy Reactions Criticality Noted Date Comments Ezetimibe Unknown 06/04/2023 Penicillins Itching Low 06/04/2023 Ranitidine Unknown 06/04/2023 Simvastatin Unknown 06/04/2023 Medications No known medications Active Problems Problem Noted Date Diagnosed Date Scalp laceration, initial encounter 05/15/2024 Scalp hematoma, initial encounter 05/15/2024 Head injury, initial encounter 05/15/2024 DDD (degenerative disc disease), cervical 2024 Sprain of ribs, initial encounter 05/15/2024 Encounters Date Type Department Care Team Description 05/15/2024 3:15 PM WAREHOUSE LEAD - 05/15/2024 3:47 PM [facility] Emergency [facility] Emergency Department [address] [place] [address] Scalp laceration, initial encounter (Primary Dx); Scalp hematoma, initial encounter; Head injury, initial encounter; DDD (degenerative disc disease), cervical; Sprain of ribs, initial encounter Discharge Disposition: Discharge to home or self care from Last 3 Months Social History Tobacco Use Types Packs/Day Years Used Date Smoking Tobacco: Never Assessed Personal Safety Answer Date Recorded Have you ever been in or are you currently in a harmful physical or emotional relationship or is someone making you feel afraid or unsafe? Denies 05/15/2024 Comments Unknown Sex and Gender Information Value Date Recorded Sex Assigned at Not on file Legal Sex Female 3:21 PM WAREHOUSE LEAD Gender Identity Not on file Sexual Orientation Not on file Obstetrics History Last Filed Vital Signs Vital Sign Reading Time Taken Comments Blood Pressure 186/86 05/15/2024 1:25 PM WAREHOUSE LEAD Pulse 68 05/15/2024 1:25 PM WAREHOUSE LEAD Temperature 36.8 C (98.3 F) 05/15/2024 1:25 PM WAREHOUSE LEAD Respiratory Rate 14 05/15/2024 1:25 PM WAREHOUSE LEAD Oxygen Saturation 99% 05/15/2024 1:25 PM WAREHOUSE LEAD Inhaled Oxygen Concentration - - Weight 104.3 kg (230 lb) 05/15/2024 1:25 PM WAREHOUSE LEAD Height 167.6 cm (5' 6 ) 05/15/2024 1:25 PM WAREHOUSE LEAD Body Mass Index 37.12 05/15/2024 1:25 PM WAREHOUSE LEAD Plan of Treatment Health Maintenance Due Date Last Done Comments Breast Cancer Screening-Mammogram 1953 Colon Cancer Screening-Colonoscopy 1953 Depression Screening 1953 Fall Risk Assessment 1953 Hepatitis C Screening 1953 Osteoporosis Screening-Bone Density Scan 1953 DTaP/Tdap/Td Vaccine (1 - Tdap) 1964 Hepatitis B Screening 1971 Well Visit 65+ 2018 Pneumococcal vaccine 65+ (2 of 2 - PCV) 01/17/2020 01/16/2019 Zoster Vaccine (2 of 2) 05/02/2020 03/07/2020 Influenza Vaccine (#1) 2024 0, 01/16/2019, 03/19/2018 Procedures Procedure Name Priority Date/Time Associated Diagnosis Comments CT CERVICAL SPINE WO CONTRAST ED 05/15/2024 2:[address] HEAD WO CONTRAST ED 05/15/2024 2 :20 PM WAREHOUSE LEAD XR RIBS RIGHT W PA CHEST ED 05/15/2024 1:50 PM WAREHOUSE LEAD from Last 3 Months Results * CT Cervical Spine WO Contrast (05/15/2024 2:20 PM WAREHOUSE LEAD) Anatomical Region Laterality Modality Spine N/A Computed Tomogra phy 05/15/2024 2:28 PM WAREHOUSE LEAD Narrative 05/15/2024 2:38 PM WAREHOUSE LEAD EXAM DESCRIPTION: CT HEAD WO CONTRAST; CT CERVICAL SPINE WO CONTRAST REASON FOR STUDY: Accidental fall with head injury. Fall today, hit back of head on dresser, denies LOC and neck pain ; Accidental fall with head injury Fall today, hit back of head on dresser, denies LOC and neck pain TECHNIQUE: Axial images acquired through the brain without intravenous contrast. Axial images through the cervical spine with sagittal and coronal reformatted images. Images stored on PACS. Automated exposure control was used as a dose optimization technique for this examination. COMPARISON: None FINDINGS: HEAD BRAIN: No gross intraparenchymal hemorrhage, mass or edema. Grossly normal turner-white differentiation. No hydrocephalus. EXTRA-AXIAL SPACES: Prominent extra-axial spaces within the medial right frontal lobe. No evidence of acute subdural hematoma. CALVARIUM: Hyperostosis. No depressed skull fracture seen. SINUSES/MASTOIDS: Moderate mucosal thickening within the left sphenoid sinuses. ORBITS: No significant abnormality. CERVICAL SPINE ALIGNMENT: Trace anterolisthesis of C3-4. Mild anterolisthesis of C4-5. Mild retrolisthesis of C5-6. VERTEBRAE: No acute fracture seen. Small anterior discontinuous osteophytes are noted. DISCS: Moderate to severe C5-6 and C6-7 degenerative disc disease. HARDWARE: Spinal cord stimulator leads terminate at the level of C5 LUNG APICES: No significant abnormality. NECK SOFT TISSUES: Nonspecific cervical lymph nodes. OTHER: No other significant findings. IMPRESSION: 1. No gross acute intracranial abnormality. 2. No gross acute osseous abnormality of the cervical spine. THIS IS AN ELECTRONICALLY VERIFIED FINAL REPORT 05/15/2024 2:38 PM - Electronically signed by Jonny Ramirez M.D. AG: ERIKA Report ID: [id number] Reading Location: [id number] Procedure Note Jonny Ramirez MD - 05/15/2024 EXAM DESCRIPTION: CT HEAD WO CONTRAST; CT CERVICAL SPINE WO CONTRAST REASON FOR STUDY: Accidental fall with head injury. Fall today, hit back of head on dresser, denies LOC and neck pain ; Accidental fall with head injury Fall today, hit back of head on dresser, denies LOC and neck pain TECHNIQUE: Axial images acquired through the brain without intravenous contrast. Axial images through the cervical spine with sagittal andcoronal reformatted images. Images stored on PACS. Automated exposure control was used as a dose optimization technique for this examination. COMPARISON: None FINDINGS: HEAD BRAIN: No gross intraparenchymal hemorrhage, mass or edema. Grossly normal turner-white differentiation. No hydrocephalus. EXTRA-AXIAL SPACES: Prominent extra-axial spaces within the medial right frontal lobe. No evidence of acute subdural hematoma. CALVARIUM: Hyperostosis. No depressed skull fracture seen. SINUSES/MASTOIDS: Moderate mucosal thickening within the left sphenoid sinuses. ORBITS: No significant abnormality. CERVICAL SPINE ALIGNMENT: Trace anterolisthesis of C3-4. Mild anterolisthesis of C4-5. Mild retrolisthesis of C5-6. VERTEBRAE: No acute fracture seen. Small anterior discontinuousosteophytes are noted. DISCS: Moderate to severe C5-6 and C6-7 degenerative disc disease. HARDWARE: Spinal cord stimulator leads terminate at the level of C5 LUNG APICES: No significant abnormality. NECK SOFT TISSUES: Nonspecific cervical lymph nodes. OTHER: No other significant findings. IMPRESSION: 1. No gross acute intracranial abnormality. 2. No gross acute osseous abnormality of the cervical spine. THIS IS AN ELECTRONICALLY VERIFIED FINAL REPORT 05/15/2024 2:38 PM - Electronically signed by Jonny Ramirez M.D. AG: ERIKA Report ID: [id number] Reading Location: [id number] Reji CRISTINA IMG CT PROCEDURES Final Resu lt * CT Head WO Contrast (05/15/2024 2:20 PM WAREHOUSE LEAD) Anatomical Region Laterality Modality Head and Neck N/A Computed Tomogra phy 05/15/2024 2:28 PM WAREHOUSE LEAD Narrative 05/15/2024 2:38 PM WAREHOUSE LEAD EXAM DESCRIPTION: CT HEAD WO CONTRAST; CT CERVICAL SPINE WO CONTRAST REASON FOR STUDY: Accidental fall with head injury. Fall today, hit back of head on dresser, denies LOC and neck pain ; Accidental fall with head injury Fall today, hit back of head on dresser, denies LOC and neck pain TECHNIQUE: Axial images acquired through the brain without intravenous contrast. Axial images through the cervical spine with sagittal and coronal reformatted images. Images stored on PACS. Automated exposure control was used as a dose optimization technique for this examination. COMPARISON: None FINDINGS: HEAD BRAIN: No gross intraparenchymal hemorrhage, mass or edema. Grossly normal turner-white differentiation. No hydrocephalus. EXTRA-AXIAL SPACES: Prominent extra-axial spaces within the medial right frontal lobe. No evidence of acute subdural hematoma. CALVARIUM: Hyperostosis. No depressed skull fracture seen. SINUSES/MASTOIDS: Moderate mucosal thickening within the left sphenoid sinuses. ORBITS: No significant abnormality. CERVICAL SPINE ALIGNMENT: Trace anterolisthesis of C3-4. Mild anterolisthesis of C4-5. Mild retrolisthesis of C5-6. VERTEBRAE: No acute fracture seen. Small anterior discontinuous osteophytes are noted. DISCS: Moderate to severe C5-6 and C6-7 degenerative disc disease. HARDWARE: Spinal cord stimulator leads terminate at the level of C5 LUNG APICES: No significant abnormality. NECK SOFT TISSUES: Nonspecific cervical lymph nodes. OTHER: No other significant findings. IMPRESSION: 1. No gross acute intracranial abnormality. 2. No gross acute osseous abnormality of the cervical spine. THIS IS AN ELECTRONICALLY VERIFIED FINAL REPORT 05/15/2024 2:38 PM - Electronically signed by Jonny Ramirez M.D. AG: ERIKA Report ID: [id number] Reading Location: [id number] Procedure Note Jonny Ramirez MD - 05/15/2024 EXAM DESCRIPTION: CT HEAD WO CONTRAST; CT CERVICAL SPINE WO CONTRAST REASON FOR STUDY: Accidental fall with head injury. Fall today, hit back of head on dresser, denies LOC and neck pain ; Accidental fall with head injury Fall today, hit back of head on dresser, denies LOC and neck pain TECHNIQUE: Axial images acquired through the brain without intravenous contrast. Axial images through the cervical spine with sagittal andcoronal reformatted images. Images stored on PACS. Automated exposure control was used as a dose optimization technique for this examination. COMPARISON: None FINDINGS: HEAD BRAIN: No gross intraparenchymal hemorrhage, mass or edema. Grossly normal turner-white differentiation. No hydrocephalus. EXTRA-AXIAL SPACES: Prominent extra-axial spaces within the medial right frontal lobe. No evidence of acute subdural hematoma. CALVARIUM: Hyperostosis. No depressed skull fracture seen. SINUSES/MASTOIDS: Moderate mucosal thickening within the left sphenoid sinuses. ORBITS: No significant abnormality. CERVICAL SPINE ALIGNMENT: Trace anterolisthesis of C3-4. Mild anterolisthesis of C4-5. Mild retrolisthesis of C5-6. VERTEBRAE: No acute fracture seen. Small anterior discontinuousosteophytes are noted. DISCS: Moderate to severe C5-6 and C6-7 degenerative disc disease. HARDWARE: Spinal cord stimulator leads terminate at the level of C5 LUNG APICES: No significant abnormality. NECK SOFT TISSUES: Nonspecific cervical lymph nodes. OTHER: No other significant findings. IMPRESSION: 1. No gross acute intracranial abnormality. 2. No gross acute osseous abnormality of the cervical spine. THIS IS AN ELECTRONICALLY VERIFIED FINAL REPORT 05/15/2024 2:38 PM - Electronically signed by Jonny Ramirez M.D. AG: ERIKA Report ID: [id number] Reading Location: [id number] Reji CRISTINA IMNatalya CT PROCEDURES Final Resu lt * XR Ribs Right W PA Chest 3 or More Views (05/15/2024 1:50 PM WAREHOUSE LEAD) Anatomical Region Laterality Modality Rib, Chest Right Computed Radiogr aphy 05/15/2024 2:02 PM WAREHOUSE LEAD Narrative 05/15/2024 2:07 PM WAREHOUSE LEAD EXAM DESCRIPTION: XR RIBS RIGHT W PA CHEST REASON FOR STUDY: fall c/o a fall today. Pt reports she went to sit down and fell hitting her head on a dresser and hitting her right side. Pt reports right sided rib pain and has a laceration on the top of her head. TECHNIQUE: PA view(s) of the two views right ribs COMPARISON: No comparison. FINDINGS: No acute fracture. No pneumothorax. Normal heart and mediastinal contours. Epidural spinal stimulator leads over the spinal canal. IMPRESSION: No acute rib fracture. THIS IS AN ELECTRONICALLY VERIFIED FINAL REPORT 05/15/2024 2:07 PM - Electronically signed by Diane Bui M.D. LC: UYEN Report ID: [id number] Reading Location: [id number] Procedure Note Yennifer Bui MD - 05/15/2024 EXAM DESCRIPTION: XR RIBS RIGHT W PA CHEST REASON FOR STUDY: fall c/o a fall today. Pt reports she went to sit down and fell hitting herhead on a dresser and hitting her right side. Pt reports right sided rib pain andhas a laceration on the top of her head. TECHNIQUE: PA view(s) of the two views right ribs COMPARISON: No comparison. FINDINGS: No acute fracture. No pneumothorax. Normal heart and mediastinalcontours. Epidural spinal stimulator leads over the spinal canal. IMPRESSION: No acute rib fracture. THIS IS AN ELECTRONICALLY VERIFIED FINAL REPORT 05/15/2024 2:07 PM - Electronically signed by Diane Bui M.D. LC: UYEN Report ID: [id number] Reading Location: [id number] Man Bassett MD IMG XR PROCEDURES Final Resu lt from Last 3 Months Insurance MEDICARE [facility] MEDICARE Address: [facility] [address] [place] [address] Care Teams Streetsweeper Operator Relationship Specialty Start Date End Date Lenin Hirsch MD PCP - General Family Practice 12/03/22
--- OUTSIDE RECORDS SUMMARY | 2024-07-23 17:02 | XMS_ITS | Encounter Summary ---
Author Organization [employer] Address 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
--- OUTSIDE RECORDS SUMMARY | 2024-07-23 17:02 | XMS_ITS | Encounter Summary ---
Author Organization [employer] [facility] Address 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
--- OUTSIDE RECORDS SUMMARY | 2024-07-23 17:02 | XMS_ITS | Encounter Summary ---
Author Organization [email or web address] Address [address] [place] [address] Care Team Providers Care Chocolate Packer Name Role Phone Unavailable Primary Care Provider Unavailabl e Encounter Details Date Type Department Care Team (Latest Contact Info) Description 02/23/1999 Outpatient Historical HIS CHRONIC PAIN MNGT Marty Ledezma MD [address] [place] [address] Myalgia and myositis, unspecified (Primary Dx) Social History Tobacco Use Types Packs/Day Years Used Date Smoking Tobacco: Never Assessed Comments Unknown Sex and Gender Information Value Date Recorded Sex Assigned at Not on file Legal Sex Female 4:47 AM PRACTICE ARCHITECT Gender Identity Not on file Sexual Orientation Not on file documented as of this encounter Plan of Treatment Not on file documented as of this encounter Visit Diagnoses Diagnosis Myalgia and myositis, unspecified- Primary Mylagia and myositis, unspecified documented in this encounter
--- OUTSIDE RECORDS SUMMARY | 2024-07-23 17:02 | XMS_ITS | Encounter Summary ---
Author Organization [employer] Address 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
--- OUTSIDE RECORDS SUMMARY | 2024-07-23 17:02 | XMS_ITS | Encounter Summary ---
Author Organization [employer] Address 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
--- OUTSIDE RECORDS SUMMARY | 2024-07-23 17:02 | XMS_ITS | Encounter Summary ---
Author Organization [facility] Address [address] [place] [address] Care Team Providers Care Lamination Inspector Name Role Phone Unavailable Primary Care Provider Unavailabl e Encounter Details Date Type Department Care Team (Latest Contact Info) Description 06/06/1999 Outpatient Historical HIS CHRONIC PAIN MNMarty Sherwood MD [address] [place] [address] Myalgia and myositis, unspecified (Primary Dx) Social History Tobacco Use Types Packs/Day Years Used Date Smoking Tobacco: Never Assessed Comments Unknown Sex and Gender Information Value Date Recorded Sex Assigned at Not on file Legal Sex Female 4:47 AM SYRUP BLENDER Gender Identity Not on file Sexual Orientation Not on file documented as of this encounter Plan of Treatment Not on file documented as of this encounter Visit Diagnoses Diagnosis Myalgia and myositis, unspecified- Primary Mylagia and myositis, unspecified documented in this encounter
--- OUTSIDE RECORDS SUMMARY | 2024-07-23 17:02 | XMS_ITS | Referral Summary ---
Author Organization [facility] Address [address] [place] [address] Care Team Providers Care Telephone Clerk Name Role Phone Lenin Hirsch MD Primary Care Provider [phone] Encounters Date Type Department Care Team Description 05/15/2024 3:15 PM REHABILITATION MEDICINE PHYSICIAN - 05/15/2024 3:47 PM REHABILITATION MEDICINE PHYSICIAN Emergency [facility] Emergency Department [address] [place] [address] Scalp laceration, initial encounter (Primary Dx); Scalp hematoma, initial encounter; Head injury, initial encounter; DDD (degenerative disc disease), cervical; Sprain of ribs, initial encounter Discharge Disposition: Discharge to home or self care from Last 3 Months Allergies Active Allergy Reactions Criticality Noted Date Comments Ezetimibe Unknown 06/04/2023 Penicillins Itching Low 06/04/2023 Ranitidine Unknown 06/04/2023 Simvastatin Unknown 06/04/2023 Medications No known medications Active Problems Problem Noted Date Diagnosed Date Scalp laceration, initial encounter 05/15/2024 Scalp hematoma, initial encounter 05/15/2024 Head injury, initial encounter 05/15/2024 DDD (degenerative disc disease), cervical 2024 Sprain of ribs, initial encounter 05/15/2024 Social History Tobacco Use Types Packs/Day Years [...] on file Legal Sex Female 3:21 PM REHABILITATION MEDICINE PHYSICIAN Gender Identity Not on file Sexual Orientation Not on file Last Filed Vital Signs Vital Sign Reading Time Taken Comments Blood Pressure 186/86 05/15/2024 1:25 PM REHABILITATION MEDICINE PHYSICIAN Pulse 68 05/15/2024 1:25 PM REHABILITATION MEDICINE PHYSICIAN Temperature 36.8 C (98.3 F) 05/15/2024 1:25 PM REHABILITATION MEDICINE PHYSICIAN Respiratory Rate 14 05/15/2024 1:25 PM REHABILITATION MEDICINE PHYSICIAN Oxygen Saturation 99% 05/15/2024 1:25 PM REHABILITATION MEDICINE PHYSICIAN Inhaled Oxygen Concentration - - Weight 104.3 kg (230 lb) 05/15/2024 1:25 PM REHABILITATION MEDICINE PHYSICIAN Height 167.6 cm (5' 6 ) 05/15/2024 1:25 PM REHABILITATION MEDICINE PHYSICIAN Body Mass Index 37.12 05/15/2024 1:25 PM REHABILITATION MEDICINE PHYSICIAN Plan of Treatment Not on file Procedures Procedure Name Priority Date/Time Associated Diagnosis Comments CT CERVICAL SPINE WO CONTRAST ED 05/15/2024 2:20 PM REHABILITATION MEDICINE PHYSICIAN CT HEAD WO CONTRAST ED 05/15/2024 2 :20 PM REHABILITATION MEDICINE PHYSICIAN XR RIBS RIGHT W PA CHEST ED 05/15/2024 1:50 PM REHABILITATION MEDICINE PHYSICIAN from Last 3 Months Results * CT Cervical Spine WO Contrast (05/15/2024 2:20 PM REHABILITATION MEDICINE PHYSICIAN) Anatomical Region Laterality Modality Spine N/A Computed Tomogra phy 05/15/2024 2:28 PM REHABILITATION MEDICINE PHYSICIAN Narrative 05/15/2024 2:38 PM REHABILITATION MEDICINE PHYSICIAN EXAM DESCRIPTION: CT HEAD WO CONTRAST; CT [...] Electronically signed by Jonny Ramirez M.D. AG: AG Report ID: [id number] Reading Location: [id number] Procedure Note Jonny Ramirez MD - 05/15/2024 [...] Electronically signed by Jonny Ramirez M.D. AG: AG Report ID: [id number] Reading Location: [id number] [address] IM[address] PROCEDURES Final Resu lt * CT Head WO Contrast (05/15/2024 2:20 PM REHABILITATION MEDICINE PHYSICIAN) Anatomical Region Laterality Modality Head and Neck N/A Computed Tomogra phy 05/15/2024 2:28 PM REHABILITATION MEDICINE PHYSICIAN Narrative 05/15/2024 2:38 PM REHABILITATION MEDICINE PHYSICIAN EXAM DESCRIPTION: CT HEAD WO CONTRAST; CT [...] Jonny Ramirez M.D. AG: ERIKA Report ID: [id number] Reading Location: [id number] Procedure Note Jonny Ramirez MD - 05/15/2024 [...] Electronically signed by Jonny Ramirez M.D. AG: AG Report ID: [id number] Reading Location: [id number] [address] [address] IMG CT PROCEDURES Final Resu lt * XR Ribs Right W PA Chest 3 or More Views (05/15/2024 1:50 PM REHABILITATION MEDICINE PHYSICIAN) Anatomical Region Laterality Modality Rib, Chest Right Computed Radiogr aphy 05/15/2024 2:02 PM REHABILITATION MEDICINE PHYSICIAN Narrative 05/15/2024 2:07 PM REHABILITATION MEDICINE PHYSICIAN EXAM DESCRIPTION: XR RIBS RIGHT W PA [...] Diane Bui M.D. LC: UYEN Report ID: [id number] Reading Location: [id number] Procedure Note Yennifer Bui MD - 05/15/2024 [...] Diane Bui M.D. LC: UYEN Report ID: [id number] Reading Location: [id number] Man Bassett MD IMG XR PROCEDURES Final Resu lt from Last 3 Months Insurance MEDICARE [employer] Care Teams Telephone Clerk Relationship Specialty Start Date End Date Lenin Hirsch MD PCP - General Family Practice 12/03/22
[2024-07-23 19:06] LABS: Add Urine Microscopic? YES; Appearance Urine Clear (Clear); Bacteria Urine None Seen /hpf; Bilirubin Urine Negative (Negative); Blood Urine Negative (Negative); Color Urine Yellow (Yellow); Glucose Urine UA Negative (Negative); Ketones Urine Negative (Negative); Leukocyte Esterase Ur Trace LEU/UL (Negative); Nitrate Urine Negative (Negative); Non Pathogenic Casts 0-2; Protein Urine Negative (Negative); RBC Urine 0-2 /hpf (0-2); Specific Grav Ur 1.009 (1.001-1.035); Squamous Epithelial Cell Urine None Seen /hpf (Few); WBC Urine 0-5 /hpf (0-3); pH Urine 7.5 (5.0-9.0)
== END 2024-07-23 15:11 | disposition home or self-care (01) ==
PROVIDERS: PCP Nurse Practitioner Adult Health; Visit Provider Nurse Practitioner Adult Health
DX: R39.9 Unspecified symptoms and signs involving the genitourinary system (principal)
CPT/HCPCS: 81001; 87086

== ENCOUNTER 2024-09-22 11:28 | Outpatient (CLI) | payer MEDICARE, SELFPAY ==
--- OUTSIDE RECORDS SUMMARY | 2024-09-22 11:50 | XMS_ITS | Encounter Summary ---
Author Organization [facility] [facility] Address 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
--- OUTSIDE RECORDS SUMMARY | 2024-09-22 11:50 | XMS_ITS | Referral Summary ---
Author Organization [facility] Address [address] [place] [address] Care Team Providers Care Grease And Tallow Pumper Name Role Phone Lenin Hirsch MD Primary Care Provider [phone] Allergies Active Allergy Reactions Criticality Noted Date [...] on file Legal Sex Female 3:21 PM READING SPECIALIST Gender Identity Not on file Sexual Orientation Not on file Last Filed Vital Signs Vital Sign Reading Time Taken Comments Blood Pressure 186/86 05/15/2024 1:25 PM READING SPECIALIST Pulse 68 05/15/2024 1:25 PM READING SPECIALIST Temperature 36.8 C (98.3 F) 05/15/2024 1:25 PM READING SPECIALIST Respiratory Rate 14 05/15/2024 1:25 PM READING SPECIALIST Oxygen Saturation 99% 05/15/2024 1:25 PM READING SPECIALIST Inhaled Oxygen Concentration - - Weight 104.3 kg (230 lb) 05/15/2024 1:25 PM READING SPECIALIST Height 167.6 cm (5' 6 ) 05/15/2024 1:25 PM READING SPECIALIST Body Mass Index 37.12 05/15/2024 1:25 PM READING SPECIALIST Plan of Treatment Not on file Insurance [facility] MEDICARE ADVANTAGE Care Teams Grease And Tallow Pumper Relationship Specialty Start Date End Date Lenin Hirsch MD PCP - General Family Practice 12/03/22
--- OUTSIDE RECORDS SUMMARY | 2024-09-22 11:50 | XMS_ITS | Encounter Summary ---
Author Organization [facility] Address [address] [place] [address] Care Team Providers Care Labor Relations Director Name Role Phone Unavailable Primary Care Provider Unavailabl e Encounter Details Date Type Department Care Team (Latest Contact Info) Description 04/27/1999 Outpatient Historical HIS CHRONIC PAIN MNGT Marty Ledezma MD [address] [place] [address] Myalgia and myositis, unspecified (Primary Dx) Social History Tobacco Use Types Packs/Day Years Used Date Smoking Tobacco: Never Assessed Comments Unknown Sex and Gender Information Value Date Recorded Sex Assigned at Not on file Legal Sex Female 4:47 AM INSPECTOR CLIP ON SUNGLASSES Gender Identity Not on file Sexual Orientation Not on file documented as of this encounter Plan of Treatment Not on file documented as of this encounter Visit Diagnoses Diagnosis Myalgia and myositis, unspecified- Primary Mylagia and myositis, unspecified documented in this encounter
--- OUTSIDE RECORDS SUMMARY | 2024-09-22 11:50 | XMS_ITS | Clinical Summary ---
Author Organization [facility] Address [address] [place] [address] Care Team Providers Care Route Salesperson Name Role Phone Lenin Hirsch MD Primary Care Provider [phone] Allergies Active Allergy Reactions Criticality Noted Date [...] on file Legal Sex Female 3:21 PM DIRECTOR LEARNING Gender Identity Not on file Sexual Orientation Not on file Obstetrics History Last Filed Vital Signs Vital Sign Reading Time Taken Comments Blood Pressure 186/86 05/15/2024 1:25 PM DIRECTOR LEARNING Pulse 68 05/15/2024 1:25 PM DIRECTOR LEARNING Temperature 36.8 C (98.3 F) 05/15/2024 1:25 PM DIRECTOR LEARNING Respiratory Rate 14 05/15/2024 1:25 PM DIRECTOR LEARNING Oxygen Saturation 99% 05/15/2024 1:25 PM DIRECTOR LEARNING Inhaled Oxygen Concentration - - Weight 104.3 kg (230 lb) 05/15/2024 1:25 PM DIRECTOR LEARNING Height 167.6 cm (5' 6 ) 05/15/2024 1:25 PM DIRECTOR LEARNING Body Mass Index 37.12 05/15/2024 1:25 PM DIRECTOR LEARNING Plan of Treatment Health Maintenance Due Date [...] Influenza Vaccine (#1) 2024 0, 01/16/2019, 03/19/2018 Insurance [facility] MEDICARE ADVANTAGE [facility] MED[facility] Address: [facility] [address] [place] [address] Care Teams [address] Salesperson Relationship Specialty Start Date End Date Lenin Hirsch MD PCP - General Family Practice 12/03/22
--- OUTSIDE RECORDS SUMMARY | 2024-09-22 11:50 | XMS_ITS | Encounter Summary ---
Author Organization [employer] Address [address] [place] [address] Care Team Providers Care Substation Design Draftsperson Name Role Phone Unavailable Primary Care Provider [...] on file Legal Sex Female 4:47 AM GASOLINE DRAGLINE OPERATOR Gender Identity Not on file Sexual Orientation Not on file documented as of this encounter Plan of Treatment Not on file documented as of this encounter Visit Diagnoses Diagnosis Disturbance of skin sensation- Primary documented in this encounter
--- OUTSIDE RECORDS SUMMARY | 2024-09-22 11:50 | XMS_ITS | Encounter Summary ---
Author Organization [employer] Address [address] [place] [address] Care Team Providers Care Mis Director Name Role Phone Unavailable Primary Care Provider Unavailabl e Encounter Details Date Type Department Care Team (Latest Contact Info) Description 02/23/1999 Outpatient Historical HIS CHRONIC PAIN MNGT Marty Ledezma MD [address] [place] [address] Myalgia and myositis, unspecified (Primary Dx) Social History Tobacco Use Types Packs/Day Years Used Date Smoking Tobacco: Never Assessed Comments Unknown Sex and Gender Information Value Date Recorded Sex Assigned at Not on file Legal Sex Female 4:47 AM DEPUTY HEAD Gender Identity Not on file Sexual Orientation Not on file documented as of this encounter Plan of Treatment Not on file documented as of this encounter Visit Diagnoses Diagnosis Myalgia and myositis, unspecified- Primary Mylagia and myositis, unspecified documented in this encounter
--- OUTSIDE RECORDS SUMMARY | 2024-09-22 11:50 | XMS_ITS | Encounter Summary ---
Author Organization [employer] Address [address] [place] [address] Care Team Providers Care Wheel Roller Name Role Phone Unavailable Primary Care Provider Unavailabl e Encounter Details Date Type Department Care Team (Latest Contact Info) Description 03/11/1998 Outpatient Historical HIS CHRONIC PAIN MNGT Lumbago (Primary Dx) Social History Tobacco Use Types Packs/Day Years Used Date Smoking Tobacco: Never Assessed Comments Unknown Sex and Gender Information Value Date Recorded Sex Assigned at Not on file Legal Sex Female 4:47 AM GAS CHECK PAD MAKER Gender Identity Not on file Sexual Orientation Not on file documented as of this encounter Plan of Treatment Not on file documented as of this encounter Visit Diagnoses Diagnosis Lumbago- Primary documented in this encounter
--- OUTSIDE RECORDS SUMMARY | 2024-09-22 11:50 | XMS_ITS | Encounter Summary ---
Author Organization [email or web address] Address [address] [place] [address] Care Team Providers Care Manager Academic Name Role Phone Unavailable Primary Care Provider [...] on file Legal Sex Female 4:47 AM ASSISTANT TO THE PRESIDENT Gender Identity Not on file Sexual Orientation Not on file documented as of this encounter Plan of Treatment Not on file documented as of this encounter Visit Diagnoses Diagnosis Lumbago- Primary documented in this encounter
--- OUTSIDE RECORDS SUMMARY | 2024-09-22 11:50 | XMS_ITS | Clinical Summary ---
Author Organization [facility] Address [address] [place] [address] Phone Care Team Providers Care Forensic Sergeant Name Role Phone Wade Meyers MD Primary Care Provider [phone] Allergies Active Allergy Reactions Criticality Noted Date [...] Comments Blood Pressure 120/82 05/30/2016 11:45 AM NUTRITION TEACHER Pulse 72 05/30/2016 11:45 AM NUTRITION TEACHER Temperature 36.2 C (97.2 F) 05/30/2016 11:45 AM NUTRITION TEACHER Respiratory Rate 16 05/30/2016 11:45 AM NUTRITION TEACHER Oxygen Saturation 96% 05/30/2016 11:45 AM NUTRITION TEACHER Inhaled Oxygen Concentration - - Weight 124.3 kg (274 lb) 2016 9:00 AM NUTRITION TEACHER Height 172.7 cm (5' 8 ) 2016 9:00 AM NUTRITION TEACHER Body Mass Index 41.66 2016 9:00 AM NUTRITION TEACHER Plan of Treatment Health Maintenance Due Date [...] this topic Medical Devices Implanted Type Area Child Support Investigator Device Identifier Shelf Expiration Date Model / Serial / Lot K-Wire Plain .062 - [id number] Implanted:Qty: 2 on 05/30/2016 by Edson Mays DPM at [facility] IMPLANT Right: Foot [employer] KD-062-9 / / KD-[id number] Trilliant 0.045 Double End K-Wire Implanted:Qty: 1 on 05/30/2016 by [facility]ds[facility]ays [facility] at [facility] Right: Toe [id number] / / [id number] 3.4 X 10mm Ht Implant Implanted:Qty: 1 on 05/30/2016 by Edson Mays DPM at [facility] Right: Toe / / Description:[facility] Insurance MEDICARE C [facility] on file Care Teams Forensic Sergeant Relationship Specialty Start Date End Date Wade Meyers MD [address] [place] [address] PCP - General Family Medicine 05/23/16
--- OUTSIDE RECORDS SUMMARY | 2024-09-22 11:50 | XMS_ITS | Encounter Summary ---
Author Organization [employer] Address [address] [place] [address] Care Team Providers Care Fire Truck Driver Name Role Phone Unavailable Primary Care Provider [...] on file Legal Sex Female 4:47 AM GENERAL ASSEMBLER INSTALLER Gender Identity Not on file Sexual Orientation Not on file documented as of this encounter Plan of Treatment Not on file documented as of this encounter Visit Diagnoses Diagnosis Lumbago- Primary documented in this encounter
--- OUTSIDE RECORDS SUMMARY | 2024-09-22 11:50 | XMS_ITS | Encounter Summary ---
Author Organization [employer] Address [address] [place] [address] Care Team Providers Care Senior Director Creative Services Name Role Phone Unavailable Primary Care Provider Unavailabl e Encounter Details Date Type Department Care Team (Late st Contact Info) Description 04/13/1999 Outpatient Historical HIS CHRONIC PAIN Marty Jennings MD [address] [place] [address] Social History Tobacco Use Types Packs/Day Years Used Date Smoking Tobacco: Never Assessed Comments Unknown Sex and Gender Information Value Date Recorded Sex Assigned at Not on file Legal Sex Female 4:47 AM ENGINE ROOM OPERATOR Gender Identity Not on file Sexual Orientation Not on file documented as of this encounter Plan of Treatment Not on file documented as of this encounter Visit Diagnoses Not on filedocumented in this encounter
--- OUTSIDE RECORDS SUMMARY | 2024-09-22 11:50 | XMS_ITS | Encounter Summary ---
Author Organization [facility] Address [address] [place] [address] Care Team Providers Care Mail Agent Name Role Phone Unavailable Primary Care Provider Unavailabl e Encounter Details Date Type Department Care Team (Latest Contact Info) Description 03/01/1999 Outpatient Historical HIS CHRONIC PAIN MNGT Marty Ledezma MD [address] [place] [address] Lumbago (Primary Dx) Social History Tobacco Use Types Packs/Day Years Used Date Smoking Tobacco: Never Assessed Comments Unknown Sex and Gender Information Value Date Recorded Sex Assigned at Not on file Legal Sex Female 4:47 AM BOLTER HELPER Gender Identity Not on file Sexual Orientation Not on file documented as of this encounter Plan of Treatment Not on file documented as of this encounter Visit Diagnoses Diagnosis Lumbago- Primary documented in this encounter
--- OUTSIDE RECORDS SUMMARY | 2024-09-22 11:50 | XMS_ITS | Clinical Summary ---
Author Organization [facility] Address [address] [place] [address] Care Team Providers Care Wax Cutter Name Role Phone Wade Meyers MD Primary Care Provider [phone] Allergies Active Allergy Reactions Criticality Noted Date [...] C 1971 DTaP, Tdap and Td Vaccines ( 1 - Tdap) 1972 Mammogram Screening 1993 Annual Medicare Wellness Visit 2018 Dexa Scan (General) 2018 Pneumococcal Vaccine: 50+ Years (2 of 2 - PCV) 01/17/2020 01/16/2019 COVID-19 Vaccine (3 - 2023-2 5 season) 2024 09/28/2020, 08/11/2020 RSV Immunization or 60+ Years (1 - 1-dose 75+ series) 2028 Zoster Vaccines Completed 12/21/2020, 03/07/2020 Meningococcal B Vaccine Aged Out No l onger eligible based on patient's age to complete this topic Meningococcal Vaccine Aged Out No juliane vera eligible based on patient's age to complete this topic RSV Immunizations Under 20 Months Aged Out No longer eligible b ased on patient's age to complete this topic Insurance [facility] Care Teams Wax Cutter Relationship Specialty Start Date End Date Wade Meyers MD [address] [place] [address] PCP - General FAMILY PRACTICE 06/27/21
--- OUTSIDE RECORDS SUMMARY | 2024-09-22 11:50 | XMS_ITS | Clinical Summary ---
Author Organization [facility] Address [address] [facility] Attn: Epic Prelude ADT [place] [address] Care Team Providers Care Electronics Mechanic Apprentice Name Role Phone Unavailable Primary Care Provider Unavailabl e Social History Tobacco Use Types Packs/Day Years Used Date Smoking Tobacco: Never Assessed Comments Unknown Sex and Gender Information Value Date Recorded Sex Assigned at Not on file Legal Sex Female 4:47 AM DIE OUT WORKER Gender Identity Not on file Sexual Orientation [...]
--- OUTSIDE RECORDS SUMMARY | 2024-09-22 11:50 | XMS_ITS | Encounter Summary ---
Author Organization [employer] Address [address] [place] [address] Care Team Providers Care Corporate Director Of Human Resources Name Role Phone Unavailable Primary Care Provider Unavailabl e Encounter Details Date Type Department Care Team (Latest Contact Info) Description 06/06/1999 Outpatient Historical HIS CHRONIC PAIN MNMarty Sherwood MD [address] [place] [address] Myalgia and myositis, unspecified (Primary Dx) Social History Tobacco Use Types Packs/Day Years Used Date Smoking Tobacco: Never Assessed Comments Unknown Sex and Gender Information Value Date Recorded Sex Assigned at Not on file Legal Sex Female 4:47 AM CLINICAL ADMINISTRATOR Gender Identity Not on file Sexual Orientation Not on file documented as of this encounter Plan of Treatment Not on file documented as of this encounter Visit Diagnoses Diagnosis Myalgia and myositis, unspecified- Primary Mylagia and myositis, unspecified documented in this encounter
[2024-09-22 20:12] LABS: Hematocrit 38.9 % (37.0-47.0); Hemoglobin 12.2 g/dL (12.0-15.0); Mean Corpuscular HGB Conc 31.4 g/dl (32-36); Mean Corpuscular Hemoglobin 26.6 pg (26-34); Mean Corpuscular Volume 84.9 fl (80-100); Mean Platelet Volume 11.1 fl (7.4-10.4); Platelet Count Result 370 k/mm3 (150-375); Red Blood Count 4.58 M/mm3 (4.2-5.4); Red Cell Distribution Width 15.8 % (11.5-14.5); White Blood Count 8.1 K/mm3 (4.5-10.0)
[2024-09-22 20:43] LABS: LDL Cholesterol Direct 59 mg/dL
[2024-09-22 21:04] LABS: Alanine Aminotransferase 27 U/L (6-35); Albumin Level 4.4 g/dL (3.5-5.1); Alkaline Phosphatase 108 U/L (38-126); Anion Gap 8 mmol/L (4-12); Aspartate Amino Transferase 61 U/L (14-36); Bilirubin,Total 0.8 mg/dL (0.2-1.3); Blood Urea Nitrogen 13 mg/dL (7-17); Calcium 9.4 mg/dL (8.4-10.2); Carbon Dioxide 26 mmol/L (22-30); Chloride 105 mmol/L (98-107); Cholesterol 192 mg/dL (0-200); Estimated Glomerular Filt Rate > 60; Glucose 143 mg/dL (65-110); HDL Direct 71 mg/dL; Sodium 139 mmol/L (137-145); Triglycerides 117 mg/dL (<150)
[2024-09-22 21:12] LABS: Vitamin D 25 Hydroxy 38.6 ng/mL
[2024-09-22 21:53] LABS: Free T4 Free Thyroxine 1.23 ng/dL (0.78-2.19)
[2024-09-22 23:32] LABS: MALB Creatinine Ratio 6.1 mg/g (0-30); Microalbumin Urine Random 13.7 mg/L (0-16.7)
== END 2024-09-22 11:29 | disposition home or self-care (01) ==
PROVIDERS: PCP Nurse Practitioner Adult Health; Visit Provider Nurse Practitioner Family
DX: E11.42 Type 2 diabetes mellitus with diabetic polyneuropathy (principal); E66.09 Other obesity due to excess calories; Z68.38 Body mass index [BMI] 38.0-38.9, adult; E78.2 Mixed hyperlipidemia; E55.9 Vitamin D deficiency, unspecified; R79.89 Other specified abnormal findings of blood chemistry
CPT/HCPCS: 36415; 80053; 80061; 82043; 82306; 82607; 84439; 84443; 85027

== ENCOUNTER 2024-10-20 14:24 | Outpatient (CLI) | payer MEDICARE, SELFPAY ==
--- NOTE | ~2024-10-20 | MM_ITS ---
EXAMINATION: MM screening [facility] BI w micheal HISTORY: Screening TECHNIQUE: Craniocaudal and mediolateral oblique 3-D tomosynthesis images were obtained and synthetic 2-D images were generated. CAD analysis was submitted and interpreted. COMPARISON: Comparison to multiple prior studies sequentially, with oldest reviewed study dated 03/14. BREAST PARENCHYMAL COMPOSITION: Not Dense: The breasts are almost entirely fatty. FINDINGS: There is no evidence of suspicious mass, calcification, or architectural distortion to sugg est malignancy in either breast. There has been no suspicious interval change. IMPRESSION: 1. No mammographic evidence of malignancy. 2. Recommend routine screening mammography in one year. BI-RADS Category 1: Negative Reviewed, dictated and finalized at location B.
--- OUTSIDE RECORDS SUMMARY | 2024-10-20 15:52 | XMS_ITS | Encounter Summary ---
Author Organization [facility] Address [address] [place] [address] Care Team Providers Care Pressure Testing Technician Name Role Phone Unavailable Primary Care Provider Unavailabl e Encounter Details Date Type Department Care Team (Latest Contact Info) Description 04/27/1999 Outpatient Historical HIS CHRONIC PAIN MNGT Marty Ledezma MD [address] [place] [address] Myalgia and myositis, unspecified (Primary Dx) Social History Tobacco Use Types Packs/Day Years Used Date Smoking Tobacco: Never Assessed Comments Unknown Sex and Gender Information Value Date Recorded Sex Assigned at Not on file Legal Sex Female 4:47 AM BLOCK OUT MACHINE OPERATOR Gender Identity Not on file Sexual Orientation Not on file documented as of this encounter Plan of Treatment Not on file documented as of this encounter Visit Diagnoses Diagnosis Myalgia and myositis, unspecified- Primary Mylagia and myositis, unspecified documented in this encounter
--- OUTSIDE RECORDS SUMMARY | 2024-10-20 15:52 | XMS_ITS | Clinical Summary ---
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
--- OUTSIDE RECORDS SUMMARY | 2024-10-20 15:52 | XMS_ITS | Encounter Summary ---
Author Organization [employer] Address [address] [place] [address] Care Team Providers Care Aqueduct And Reservoir Keeper Name Role Phone Unavailable Primary Care Provider [...] on file Legal Sex Female 4:47 AM CENTRAL SUPPLY NURSE Gender Identity Not on file Sexual Orientation Not on file documented as of this encounter Plan of Treatment Not on file documented as of this encounter Visit Diagnoses Diagnosis Disturbance of skin sensation- Primary documented in this encounter
--- OUTSIDE RECORDS SUMMARY | 2024-10-20 15:52 | XMS_ITS | Encounter Summary ---
Author Organization [employer] Address [address] [place] [address] Care Team Providers Care Bar Catcher Name Role Phone Unavailable Primary Care Provider Unavailabl e Encounter Details Date Type Department Care Team (Latest Contact Info) Description 06/06/1999 Outpatient Historical HIS CHRONIC PAIN MNGT Marty Ledezma MD [address] [place] [address] Myalgia and myositis, unspecified (Primary Dx) Social History Tobacco Use Types Packs/Day Years Used Date Smoking Tobacco: Never Assessed Comments Unknown Sex and Gender Information Value Date Recorded Sex Assigned at Not on file Legal Sex Female 4:47 AM MOTOR ASSEMBLY SUPERVISOR Gender Identity Not on file Sexual Orientation Not on file documented as of this encounter Plan of Treatment Not on file documented as of this encounter Visit Diagnoses Diagnosis Myalgia and myositis, unspecified- Primary Mylagia and myositis, unspecified documented in this encounter
--- OUTSIDE RECORDS SUMMARY | 2024-10-20 15:52 | XMS_ITS | Encounter Summary ---
Author Organization [employer] Address [address] [place] [address] Care Team Providers Care Inspector Outside Production Name Role Phone Unavailable Primary Care Provider [...] on file Legal Sex Female 4:47 AM BAND HEAD SAW OPERATOR Gender Identity Not on file Sexual Orientation Not on file documented as of this encounter Plan of Treatment Not on file documented as of this encounter Visit Diagnoses Diagnosis Lumbago- Primary documented in this encounter
--- OUTSIDE RECORDS SUMMARY | 2024-10-20 15:52 | XMS_ITS | Encounter Summary ---
Author Organization [facility] Address 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
--- OUTSIDE RECORDS SUMMARY | 2024-10-20 15:52 | XMS_ITS | Encounter Summary ---
Author Organization [facility] [employer] [facility] Address [address] [place] [address] Care Team Providers Care Solar Fabrication Technician Name Role Phone Unavailable Primary Care Provider Unavailabl e Encounter Details Date Type Department Care Team (Late st Contact Info) Description 04/13/1999 Outpatient Historical HIS CHRONIC PAIN Marty Jennings MD [address] [place] [address] Social History Tobacco Use Types Packs/Day Years Used Date Smoking Tobacco: Never Assessed Comments Unknown Sex and Gender Information Value Date Recorded Sex Assigned at Not on file Legal Sex Female 4:47 AM STRATEGIC ALLIANCES MANAGER Gender Identity Not on file Sexual Orientation Not on file documented as of this encounter Plan of Treatment Not on file documented as of this encounter Visit Diagnoses Not on filedocumented in this encounter
--- OUTSIDE RECORDS SUMMARY | 2024-10-20 15:52 | XMS_ITS | Encounter Summary ---
Author Organization [facility] Address [address] [place] [address] Care Team Providers Care Orthotic Fitter Name Role Phone Unavailable Primary Care Provider [...] on file Legal Sex Female 4:47 AM POUNDMASTER Gender Identity Not on file Sexual Orientation Not on file documented as of this encounter Plan of Treatment Not on file documented as of this encounter Visit Diagnoses Diagnosis Lumbago- Primary documented in this encounter
--- OUTSIDE RECORDS SUMMARY | 2024-10-20 15:53 | XMS_ITS | Encounter Summary ---
Author Organization [facility] Address 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
--- OUTSIDE RECORDS SUMMARY | 2024-10-20 15:53 | XMS_ITS | Clinical Summary ---
Author Organization [facility] Address [address] [place] [address] Phone Care Team Providers Care Thread Winder Name Role Phone Wade Meyers MD Primary Care Provider [phone]- [phone] Allergies Active Allergy Reactions Criticality Noted Date [...] Comments Blood Pressure 120/82 05/30/2016 11:45 AM COMMERCIAL CREDIT SPECIALIST Pulse 72 05/30/2016 11:45 AM COMMERCIAL CREDIT SPECIALIST Temperature 36.2 C (97.2 F) 05/30/2016 11:45 AM COMMERCIAL CREDIT SPECIALIST Respiratory Rate 16 05/30/2016 11:45 AM COMMERCIAL CREDIT SPECIALIST Oxygen Saturation 96% 05/30/2016 11:45 AM COMMERCIAL CREDIT SPECIALIST Inhaled Oxygen Concentration - - Weight 124.3 kg (274 lb) 2016 9:00 AM COMMERCIAL CREDIT SPECIALIST Height 172.7 cm (5' 8) 2016 9:00 AM COMMERCIAL CREDIT SPECIALIST Body Mass Index 41.66 2016 9:00 AM COMMERCIAL CREDIT SPECIALIST Plan of Treatment Health Maintenance Due Date [...] this topic Medical Devices Implanted Type Area Extractor Filler Device Identifier Shelf Expiration Date Model / Serial / Lot K-Wire Plain .062 - [id number] Implanted:Qty: 2 on 05/30/2016 by Edson Mays DPM at [facility] IMPLANT Right: Foot [employer] [id number] / / [id number] Trilliant 0.045 Double End K-Wire Implanted:Qty: 1 on 05/30/2016 by Edson Mays DPM at [facility] Right: Toe [id number] / / [id number] 3.4 X 10mm Ht Implant Implanted:Qty: 1 on 05/30/2016 by Edson Mays DPM at [facility] Right: Toe / / Description:[facility] Insurance MEDICARE [facility] on file Care Teams Thread Winder Relationship Specialty Start Date End Date Wade Meyers MD [address] [address] PCP - General Family Medicine 05/23/16
--- OUTSIDE RECORDS SUMMARY | 2024-10-20 15:53 | XMS_ITS | Encounter Summary ---
Author Organization [facility] Address 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
--- OUTSIDE RECORDS SUMMARY | 2024-10-20 15:53 | XMS_ITS | Encounter Summary ---
Author Organization [facility] Address 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
--- OUTSIDE RECORDS SUMMARY | 2024-10-20 15:53 | XMS_ITS | Clinical Summary ---
Author Organization [facility] Address [address] [place] [address] Care Team Providers Care Entertainment Director Name Role Phone Lenin Hirsch MD Primary Care Provider +1 -[phone] Allergies Active Allergy Reactions Criticality Noted Date [...] on file Legal Sex Female 3:21 PM SENIOR PROGRAM ANALYST Gender Identity Not on file Sexual Orientation Not on file Obstetrics History Last Filed Vital Signs Vital Sign Reading Time Taken Comments Blood Pressure 186/86 05/15/2024 1:25 PM SENIOR PROGRAM ANALYST Pulse 68 05/15/2024 1:25 PM SENIOR PROGRAM ANALYST Temperature 36.8 C (98.3 F) 05/15/2024 1:25 PM SENIOR PROGRAM ANALYST Respiratory Rate 14 05/15/2024 1:25 PM SENIOR PROGRAM ANALYST Oxygen Saturation 99% 05/15/2024 1:25 PM SENIOR PROGRAM ANALYST Inhaled Oxygen Concentration - - Weight 104.3 kg (230 lb) 05/15/2024 1:25 PM SENIOR PROGRAM ANALYST Height 167.6 cm (5' 6) 05/15/2024 1:25 PM SENIOR PROGRAM ANALYST Body Mass Index 37.12 05/15/2024 1:25 PM SENIOR PROGRAM ANALYST Plan of Treatment Health Maintenance Due Date [...] (2 of 2) 05/02/2020 03/07/2020 Influenza Vaccine (Season Ended) 2025 03/02/2020, 01/16/2019, 03/19/2018 Insurance [facility] MEDICARE ADVANTAGE Care Teams Entertainment Director Relationship Specialty Start Date End Date Lenin Hirsch MD PCP - General Family Practice 12/03/22
--- OUTSIDE RECORDS SUMMARY | 2024-10-20 15:53 | XMS_ITS | Encounter Summary ---
Author Organization [employer] Address [address] [place] [address] Care Team Providers Care Oil Field Roustabout Name Role Phone Unavailable Primary Care Provider Unavailabl e Encounter Details Date Type Department Care Team (Latest Contact Info) Description 03/16/1999 Outpatient Historical HIS CHRONIC PAIN MNMarty Sherwood MD [address] [place] [address] Lumbago (Primary Dx) Social History Tobacco Use Types Packs/Day Years Used Date Smoking Tobacco: Never Assessed Comments Unknown Sex and Gender Information Value Date Recorded Sex Assigned at Not on file Legal Sex Female 4:47 AM OPERATIONS SUPPORT PROFESSIONALS Gender Identity Not on file Sexual Orientation Not on file documented as of this encounter Plan of Treatment Not on file documented as of this encounter Visit Diagnoses Diagnosis Lumbago- Primary documented in this encounter
--- OUTSIDE RECORDS SUMMARY | 2024-10-20 15:53 | XMS_ITS | Referral Summary ---
Author Organization [facility] Address [address] [place] [address] Care Team Providers Care Cabinet And Trim Installer Name Role Phone Lenin Hirsch MD Primary Care Provider [phone] [phone] Allergies Active Allergy Reactions Criticality Noted Date [...] on file Legal Sex Female 3:21 PM CONVERTIBLE TOP INSTALLER Gender Identity Not on file Sexual Orientation Not on file Last Filed Vital Signs Vital Sign Reading Time Taken Comments Blood Pressure 186/86 05/15/2024 1:25 PM CONVERTIBLE TOP INSTALLER Pulse 68 05/15/2024 1:25 PM CONVERTIBLE TOP INSTALLER Temperature 36.8 C (98.3 F) 05/15/2024 1:25 PM CONVERTIBLE TOP INSTALLER Respiratory Rate 14 05/15/2024 1:25 PM CONVERTIBLE TOP INSTALLER Oxygen Saturation 99% 05/15/2024 1:25 PM CONVERTIBLE TOP INSTALLER Inhaled Oxygen Concentration - - Weight 104.3 kg (230 lb) 05/15/2024 1:25 PM CONVERTIBLE TOP INSTALLER Height 167.6 cm (5' 6) 05/15/2024 1:25 PM CONVERTIBLE TOP INSTALLER Body Mass Index 37.12 05/15/2024 1:25 PM CONVERTIBLE TOP INSTALLER Plan of Treatment Not on file Insurance [facility] MEDICARE ADVANTAGE [facility] Address: [address] [address] Care Teams Cabinet And Trim Installer Relationship Specialty Start Date End Date Lenin Hirsch MD PCP - General Family Practice 12/03/22
== END 2024-10-20 14:25 | disposition home or self-care (01) ==
PROVIDERS: PCP Nurse Practitioner Adult Health; Visit Provider Nurse Practitioner Adult Health
DX: Z12.31 Encounter for screening mammogram for malignant neoplasm of breast (principal)
CPT/HCPCS: 77063; 77067

== ENCOUNTER 2024-11-03 08:15 | Outpatient (CLI) | payer MEDICARE, SELFPAY ==
--- NOTE | ~2024-11-03 | XR_ITS ---
EXAM/ PROCEDURE: XR shoulder LT min 2V - 11/03/2024 8:18 CDT HISTORY: 69 years old Female with Pain bilateral shoulders and right humerus after fall COMPARISON: None available TECHNIQUE: Three view(s) FINDINGS/ IMPRESSION: There are no fractures or dislocations.Mild inferior positioning of the humerus in relation to the gl enoid may represent capsular/ligamentous laxity versus possible inferior displacement. Clinical corre lation is recommended. Joint space narrowing, subchondral sclerosis, subchondral cyst formation and o steophyte formation, compatible with mild osteoarthritis. Reviewed, dictated and finalized at location A.
--- NOTE | ~2024-11-03 | XR_ITS ---
EXAM/ PROCEDURE: XR shoulder RT min 2V - 11/03/2024 8:18 CDT HISTORY: 69 years old Female with Pain bilateral shoulders and right humerus after fall COMPARISON: None available TECHNIQUE: Three view(s) FINDINGS/ IMPRESSION: There are no fractures or dislocations.Joint space narrowing, subchondral sclerosis, subchondral cyst formation and osteophyte formation, compatible with mild osteoarthritis. Reviewed, dictated and finalized at location A.
--- NOTE | ~2024-11-03 | XR_ITS ---
EXAM/ PROCEDURE: XR humerus RT - 11/03/2024 8:18 CDT HISTORY: 69 years old Female with Pain bilateral shoulders, right humerus after fall COMPARISON: None available TECHNIQUE: Two view(s) FINDINGS/ IMPRESSION: There are no fractures or dislocations.Joint spaces are within normal limits Reviewed, dictated and finalized at location A.
== END 2024-11-03 08:16 | disposition home or self-care (01) ==
LOC: ANHBWCIMG 08:16
PROVIDERS: PCP Nurse Practitioner Adult Health; Visit Provider Nurse Practitioner Adult Health
DX: M25.511 Pain in right shoulder (principal); M79.603 Pain in arm, unspecified; M19.012 Primary osteoarthritis, left shoulder; M25.412 Effusion, left shoulder
CPT/HCPCS: 73030; 73060

== ENCOUNTER 2024-11-03 11:28 | Outpatient (CLI) | payer MEDICARE, SELFPAY ==
--- NOTE | ~2024-11-03 | CT_ITS ---
EXAMINATION: CT shoulder LT wo con DATE: 11/03/2024 11:56 INDICATION: Left shoulder pain post fall TECHNIQUE: High resolution computed tomography (CT) of the left shoulder was performed without intrav enous contrast. Additional sagittal and coronal reconstructions were performed. Automated exposure co ntrol and iterative reconstruction technique were employed. The dose-length product was 596.23 mGy-cm . COMPARISON: Radiograph dated 11/03/2024. FINDINGS: Bone alignment is normal. No fracture. Mild glenohumeral osteoarthritis with small marginal osteophyt es about the glenoid and humeral head. Small glenohumeral joint effusion. Mild acromion clavicular os teoarthritis with cephalad directed small marginal osteophytes. Moderate-sized anterior subacromial s pur. There is0 mild narrowing of the anterior subacromial space with 3 mm separation of the bone of t he humeral head from the anterior subacromial spur. Erosive change at the middle facet of the greater tuberosity which can be seen in the setting of chronic rotator cuff disease. Mild dependent atelecta sis in the visualized left lower lobe. Atherosclerotic coronary artery calcifications. No pathologica lly enlarged left axillary or left hilar lymphadenopathy. IMPRESSION: 1. Mild left glenohumeral and acromioclavicular osteoarthritis and small left glenohumeral joint effu elijah. No acute osseous abnormality. Reviewed, dictated and finalized at location A. IMPRESSION: 1. Mild left glenohumeral and acromioclavicular osteoarthritis and small left g lenohumeral joint effusion. No acute osseous abnormality.
== END 2024-11-03 11:29 | disposition home or self-care (01) ==
PROVIDERS: PCP Nurse Practitioner Adult Health; Visit Provider Nurse Practitioner Adult Health
DX: M19.012 Primary osteoarthritis, left shoulder (principal); M25.412 Effusion, left shoulder
CPT/HCPCS: 73030; 73060; 73200

== ENCOUNTER 2025-03-26 14:01 | Outpatient (CLI) | payer MEDICARE, SELFPAY ==
--- NOTE | ~2025-03-26 | CT_ITS ---
EXAMINATION: CT lumbar spine wo con COMPARISON: None HISTORY: lumbar radiculopathy TECHNIQUE: Axial images were obtained through the spine without IV contrast. Coronal, sagittal reconstruction images were obtained from the axial views. CT scan performed using dose optimization techniques including the following automated exposure control; adjustment of mA and/or kV; use of iterative reconstruction technique. Automatic exposure control was used to reduce radiation dose. Permanent radiation dose record is archived to PACS. FINDINGS: Moderate levoconvex scoliosis. Moderate loss of vertebral height throughout. No acute fracture or subluxation. There is severe loss of disc height throughout the lumbar spine with disc osteophyte complex and facet hypertrophy producing multilevel severe canal and foraminal stenosis. Soft tissues unremarkable. Spinal canal catheter into the spinal canal at the level of T12-L1. Impression: Severe degenerative changes Reviewed, dictated and finalized at location P. [facility] STENCILER Impression: Severe degenerative changes
--- OUTSIDE RECORDS SUMMARY | 2025-03-26 18:29 | XMS_ITS | Encounter Summary ---
Author Organization [employer] Address [address] [place] [address] Care Team Providers Care Oyster Washer Name Role Phone Unavailable Primary Care Provider Unavailabl e Encounter Details Date Type Department Care Team (Latest Contact Info) Description 10/24/1998 Outpatient Historical HIS CHRONIC PAIN MNGT Marty Ledezma MD [address] [place] [address] Myalgia and myositis, unspecified (Primary Dx) Social History Tobacco Use Types Packs/Day Years Used Date Smoking Tobacco: Never Assessed Comments Unknown Sex and Gender Information Value Date Recorded Sex Assigned at Not on file Legal Sex Female 4:47 AM COMMERCIAL ILLUSTRATOR Gender Identity Not on file Sexual Orientation Not on file documented as of this encounter Plan of Treatment Not on file documented as of this encounter Visit Diagnoses Diagnosis Myalgia and myositis, unspecified- Primary Mylagia and myositis, unspecified documented in this encounter
--- OUTSIDE RECORDS SUMMARY | 2025-03-26 18:29 | XMS_ITS | Clinical Summary ---
Author Organization [facility] Address [address] [facility] Attn: Epic Prelude ADT [place] [address] Care Team Providers Care Belting Inspector Name Role Phone Unavailable Primary Care Provider Unavailabl e Social History Tobacco Use Types Packs/Day Years Used Date Smoking Tobacco: Never Assessed Comments Unknown Sex and Gender Information Value Date Recorded Sex Assigned at Not on file Legal Sex Female 4:47 AM INSERTER Gender Identity Not on file Sexual Orientation [...] 2003 OSTEOPOROSIS SCREENING 2018 INFLUENZA VACCINE (#1) 2024 RSV VACCINE (60+ or ) (1 - 1-dose 75+ series) 2028
--- OUTSIDE RECORDS SUMMARY | 2025-03-26 18:29 | XMS_ITS | Encounter Summary ---
Author Organization [employer] Address [address] [place] [address] Care Team Providers Care Auto Body Detailer Name Role Phone Unavailable Primary Care Provider [...] on file Legal Sex Female 4:47 AM VOLUNTEER RECRUITER Gender Identity Not on file Sexual Orientation Not on file documented as of this encounter Plan of Treatment Not on file documented as of this encounter Visit Diagnoses Diagnosis Lumbago- Primary documented in this encounter
--- OUTSIDE RECORDS SUMMARY | 2025-03-26 18:29 | XMS_ITS | Encounter Summary ---
Author Organization [employer] Address [address] [place] [address] Care Team Providers Care Maintenance Pipefitter Name Role Phone Unavailable Primary Care Provider Unavailabl e Encounter Details Date Type Department Care Team (Latest Contact Info) Description 06/06/1999 Outpatient Historical HIS CHRONIC PAIN MNMarty Sherwood MD [address] [place] [address] Myalgia and myositis, unspecified (Primary Dx) Social History Tobacco Use Types Packs/Day Years Used Date Smoking Tobacco: Never Assessed Comments Unknown Sex and Gender Information Value Date Recorded Sex Assigned at Not on file Legal Sex Female 4:47 AM CAR DETAILER Gender Identity Not on file Sexual Orientation Not on file documented as of this encounter Plan of Treatment Not on file documented as of this encounter Visit Diagnoses Diagnosis Myalgia and myositis, unspecified- Primary Mylagia and myositis, unspecified documented in this encounter
--- OUTSIDE RECORDS SUMMARY | 2025-03-26 18:29 | XMS_ITS | Encounter Summary ---
Author Organization [employer] [facility] Address [address] [place] [address] Care Team Providers Care Process Control Manager Name Role Phone Unavailable Primary Care [...] on file Legal Sex Female 4:47 AM JAMMER HOOKER Gender Identity Not on file Sexual Orientation Not on file documented as of this encounter Plan of Treatment Not on file documented as of this encounter Visit Diagnoses Diagnosis Lumbago- Primary documented in this encounter
--- OUTSIDE RECORDS SUMMARY | 2025-03-26 18:29 | XMS_ITS | Encounter Summary ---
Author Organization [facility] Address [address] [place] [address] Care Team Providers Care Hydraulic Strainer Operator Name Role Phone Unavailable Primary Care Provider Unavailabl e Encounter Details Date Type Department Care Team (Latest Contact Info) Description 04/27/1999 Outpatient Historical HIS CHRONIC PAIN MNGT Marty Ledezma MD [address] [place] [address] Myalgia and myositis, unspecified (Primary Dx) Social History Tobacco Use Types Packs/Day Years Used Date Smoking Tobacco: Never Assessed Comments Unknown Sex and Gender Information Value Date Recorded Sex Assigned at Not on file Legal Sex Female 4:47 AM MAIN GALLEY SCULLION Gender Identity Not on file Sexual Orientation Not on file documented as of this encounter Plan of Treatment Not on file documented as of this encounter Visit Diagnoses Diagnosis Myalgia and myositis, unspecified- Primary Mylagia and myositis, unspecified documented in this encounter
--- OUTSIDE RECORDS SUMMARY | 2025-03-26 18:29 | XMS_ITS | Encounter Summary ---
Author Organization [employer] Address [address] [place] [address] Care Team Providers Care Forestry Workers Name Role Phone Unavailable Primary Care Provider Unavailabl e Encounter Details Date Type Department Care Team (Latest Contact Info) Description 03/11/1998 Outpatient Historical HIS CHRONIC PAIN MNGT Lumbago (Primary Dx) Social History Tobacco Use Types Packs/Day Years Used Date Smoking Tobacco: Never Assessed Comments Unknown Sex and Gender Information Value Date Recorded Sex Assigned at Not on file Legal Sex Female 4:47 AM SOLAR INSTALLATION CREW SUPERVISOR Gender Identity Not on file Sexual Orientation Not on file documented as of this encounter Plan of Treatment Not on file documented as of this encounter Visit Diagnoses Diagnosis Lumbago- Primary documented in this encounter
--- OUTSIDE RECORDS SUMMARY | 2025-03-26 18:29 | XMS_ITS | Encounter Summary ---
Author Organization [employer] Address [address] [place] [address] Care Team Providers Care Four Slide Operator Name Role Phone Unavailable Primary Care Provider Unavailabl e Encounter Details Date Type Department Care Team (Late st Contact Info) Description 04/13/1999 Outpatient Historical HIS CHRONIC PAIN Marty Jennings MD [address] [place] [address] Social History Tobacco Use Types Packs/Day Years Used Date Smoking Tobacco: Never Assessed Comments Unknown Sex and Gender Information Value Date Recorded Sex Assigned at Not on file Legal Sex Female 4:47 AM BIOLOGICAL AIDE Gender Identity Not on file Sexual Orientation Not on file documented as of this encounter Plan of Treatment Not on file documented as of this encounter Visit Diagnoses Not on filedocumented in this encounter
--- OUTSIDE RECORDS SUMMARY | 2025-03-26 18:29 | XMS_ITS | Encounter Summary ---
Author Organization [employer] Address [address] [place] [address] Care Team Providers Care Forensic Accountant Name Role Phone Unavailable Primary Care Provider [...] on file Legal Sex Female 4:47 AM TARGET WORKER Gender Identity Not on file Sexual Orientation Not on file documented as of this encounter Plan of Treatment Not on file documented as of this encounter Visit Diagnoses Diagnosis Disturbance of skin sensation- Primary documented in this encounter
--- OUTSIDE RECORDS SUMMARY | 2025-03-26 18:30 | XMS_ITS | Clinical Summary ---
Author Organization [facility] Address [address] [place] [address] Care Team Providers Care Tax Representative Name Role Phone Lenin Hirsch MD Primary Care Provider +1 -[phone] Allergies Active Allergy Reactions Criticality Noted Date [...] on file Legal Sex Female 3:21 PM DIVISION DIRECTOR Gender Identity Not on file Sexual Orientation Not on file Last Filed Vital Signs Vital Sign Reading Time Taken Comments Blood Pressure 186/86 05/15/2024 1:25 PM DIVISION DIRECTOR Pulse 68 05/15/2024 1:25 PM DIVISION DIRECTOR Temperature 36.8 C (98.3 F) 05/15/2024 1:25 PM DIVISION DIRECTOR Respiratory Rate 14 05/15/2024 1:25 PM DIVISION DIRECTOR Oxygen Saturation 99% 05/15/2024 1:25 PM DIVISION DIRECTOR Inhaled Oxygen Concentration - - Weight 104.3 kg (230 lb) 05/15/2024 1:25 PM DIVISION DIRECTOR Height 167.6 cm (5' 6) 05/15/2024 1:25 PM DIVISION DIRECTOR Body Mass Index 37.12 05/15/2024 1:25 PM DIVISION DIRECTOR Plan of Treatment Health Maintenance Due Date [...] of 2) 05/02/2020 03/07/2020 Influenza Vaccine (#1) 2025 0, 01/16/2019, 03/19/[address] [facility] MEDICARE ADVANTAGE Care Teams Tax Representative Relationship Specialty Start Date End Date Lenin Hirsch MD PCP - General Family Practice 12/03/22
--- OUTSIDE RECORDS SUMMARY | 2025-03-26 18:30 | XMS_ITS | Encounter Summary ---
Author Organization [facility] Address [address] [place] [address] Care Team Providers Care Shop Coordinator Name Role Phone Unavailable Primary Care Provider Unavailabl e Encounter Details Date Type Department Care Team (Latest Contact Info) Description 03/16/1999 Outpatient Historical [facility]RON[facility] PA[facility] MNMarty Sherwood MD [address] [place] [address] Lumbago (Primary Dx) Social History Tobacco Use Types Packs/Day Years Used Date Smoking Tobacco: Never Assessed Comments Unknown Sex and Gender Information Value Date Recorded Sex Assigned at Not on file Legal Sex Female 4:47 AM VP HUMAN RESOURCES Gender Identity Not on file Sexual Orientation Not on file documented as of this encounter Plan of Treatment Not on file documented as of this encounter Visit Diagnoses Diagnosis Lumbago- Primary documented in this encounter
--- OUTSIDE RECORDS SUMMARY | 2025-03-26 18:30 | XMS_ITS | Encounter Summary ---
Author Organization [facility] Address 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
--- OUTSIDE RECORDS SUMMARY | 2025-03-26 18:30 | XMS_ITS | Clinical Summary ---
Author Organization [facility] Address [address] [place] [address] Phone Care Team Providers Care Ic Designer Gate Arrays Name Role Phone Wade Meyers MD Primary Care Provider [phone] Allergies Active Allergy Reactions Criticality Noted Date [...] Comments Blood Pressure 120/82 05/30/2016 11:45 AM PEN MAKER Pulse 72 05/30/2016 11:45 AM PEN MAKER Temperature 36.2 C (97.2 F) 05/30/2016 11:45 AM PEN MAKER Respiratory Rate 16 05/30/2016 11:45 AM PEN MAKER Oxygen Saturation 96% 05/30/2016 11:45 AM PEN MAKER Inhaled Oxygen Concentration - - Weight 124.3 kg (274 lb) 2016 9:00 AM PEN MAKER Height 172.7 cm (5' 8) 2016 9:00 AM PEN MAKER Body Mass Index 41.66 2016 9:00 AM PEN MAKER Plan of Treatment Health Maintenance Due Date Last Done Comments Hepatitis C Virus (HCV) Screening 1955 TdaP Immunization 1955 Cologuard 1998 Colonoscopy 1998 Colorectal Cancer Screening 1998 Immunochemical Fecal Occult Blood 1998 Pneumococcal Immunization (5 0+ years) (1 of 1 - PCV) 2003 Zoster Immunization (1 of 2) 2003 Medicare Initial AWV [id number] 05/13/2017 Influenza Immunization (#1) 2025 SARS-COV-2 Immunization ( - 2023-25 season) 2025 Respiratory Syncytial Virus (RSV) Immunization (Adult) (1 - 1-dose 75+ series) 2028 Hepatitis B Immunization Aged Out No longer eligible based on patient's age to complete this topic Human Papillomavirus (HPV) Immunization Aged Out No longer eligible b ased on patient's age to complete this topic Meningococcal Immunization (ACWY) Aged Out No longer eligible based on patient's age to complete this topic Rotavirus Immunization Aged Out No lo nger eligible based on patient's age to complete this topic Medical Devices Implanted Type Area Sales Coordinator Device Identifier Shelf Expiration Date Model / Serial / Lot K-Wire Plain .062 - [id number] Implanted:Qty: 2 on 05/30/2016 by Edson Mays DPM at [facility] IMPLANT Right: Foot [employer] KD-062-9 / / [id number] Trilliant 0.045 Double End K-Wire Implanted:Qty: 1 on 05/30/2016 by Edson Mays DPM at [facility] Right: Toe / / 3.4 X 10mm Ht Implant Implanted:Qty: 1 on 05/30/2016 by Edson Mays DPM at [facility] Right: Toe / / Description:[facility] Insurance MEDICARE C [employer] on file Care Teams Ic Designer Gate Arrays Relationship Specialty Start Date End Date Wade Meyers MD [address] [place] [address] PCP - General Family Medicine 05/23/16
--- OUTSIDE RECORDS SUMMARY | 2025-03-26 18:30 | XMS_ITS | Encounter Summary ---
Author Organization [facility] Address 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
--- OUTSIDE RECORDS SUMMARY | 2025-03-26 18:31 | XMS_ITS | Patient Health Record ---
Author Organization [facility] Address [address] [facility] [address] [place] [address] Care Team Providers Care Sand Mixer Machine Name Role Phone Claire Byrnes Unavailable [phone] Reason For Referral No Information Medications Medication SIG (Take, Route, Frequency, Duration) Notes Start Date End Date Status Azithromycin 250 MG Tablet Oral Active Omeprazole 40 MG Capsule Delayed Release Oral Active Ketoconazole 2% Shampoo External Active PARoxetine HCl 40 MG Tablet Oral Active traMADol HCl 50 MG Tablet Oral Active amLODIPine Besylate 5 MG Tablet Oral Active Triamcinolone Acetonide 0.1% Cream External Active hydroCHLOROthiazide 25 MG Tablet Oral Active methylPREDNISolone 4 MG Tablet Therapy Pack Oral Active Gabapentin 300 MG Capsule Oral Active buPROPion HCl ER (XL) 150 MG Tablet Extended Release 24 Hour Oral Active HYDROcodone-Acetaminophen 5-325 MG Tablet Oral Active Losartan Potassium 50 MG Tablet Oral Active Zolpidem Tartrate 10 MG Tablet Oral Active ALPRAZolam 0.5 MG Tablet Oral Active Baclofen 10 MG Tablet Oral Active Clobetasol Propionate 0.05 % Solution External Active Xarelto 20 MG Tablet Oral Active Atorvastatin Calcium 40 MG Tablet Oral Active Doxycycline Hyclate 100 MG Capsule Oral Active Ciprofloxacin HCl 250 MG Tablet Oral Active Clindamycin HCl 300 MG Capsule Oral Active BinaxNOW COVID-19 Ag Card Kit In Vitro *Reorder from [employer] for eRx and Interaction Alerts* Active Montelukast Sodium 10 MG Tablet Oral Active Farxiga 10 MG Tablet Oral Active hydrOXYzine HCl 25 MG Tablet Oral Active Fluconazole 150 MG Tablet Oral Active Social History Social History Additional Details Category Social Info Options Details Migrated Social History Migrated Social History Tobacco Years: Never smoker 09/18/2023 Plan Of Treatment No Information Insurance Providers Payer Name Payer Address Payer Phone Subscriber Number Group Number Insured Name Patient Relationship to Insured Coverage Start Date Coverage End Date [employer] Medicare Replacement/ Advantage - Hmo [address] [address] [place] [address] [id number] [employer] BOTELLO Self - patient is the insured
--- OUTSIDE RECORDS SUMMARY | 2025-03-26 18:31 | XMS_ITS | Clinical Summary ---
Author Organization [facility] Address [address] [place] [address] Care Team Providers Care Dental Laboratory Technology Teacher Name Role Phone Wade Meyers MD Primary Care Provider [phone] Allergies Active Allergy Reactions Criticality Noted Date [...] 2:41 PM CDT Height 172.7 cm (5' 8) 10/19/2018 2:41 PM CDT Body Mass Index [...] 01/17/2020 01/16/2019 COVID-19 Vaccine (3 - season) 2025 09/28/2020, 08/11/2020 Influenza Adult (#1) 2025 04/12/2021, 03/02/2020, 01/16/2019, Additional history exists RSV Immunization or 60+ Years (1 - 1-dose 75+ series) 2028 Zoster Vaccines Completed 12/21/2020, 03/07/2020 Hepatitis A Vaccines Aged Out No long er eligible based on patient's age to complete this topic Meningococcal B Vaccine Aged Out No l onger eligible based on patient's age to complete this topic Meningococcal Vaccine Aged Out No juliane vera eligible based on patient's age to complete this topic RSV Immunizations Under 20 Months Aged Out No longer eligible based on patient's age to complete this topic Insurance [employer] MEDICARE Care Teams Dental Laboratory Technology Teacher Relationship Specialty Start Date End Date Wade Meyers MD [address] [place] [address] PCP - General FAMILY PRACTICE 06/27/21
== END 2025-03-26 14:02 | disposition home or self-care (01) ==
PROVIDERS: PCP Nurse Practitioner Adult Health; Visit Provider Nurse Practitioner Family
DX: M54.16 Radiculopathy, lumbar region (principal); M51.369 Other intervertebral disc degeneration, lumbar region without mention of lumbar back pain or lower extremity pain
CPT/HCPCS: 72131

== ENCOUNTER 2025-03-29 11:05 | Outpatient (CLI) | payer MEDICARE, SELFPAY ==
[2025-03-29 19:31] LABS: Alanine Aminotransferase 22 U/L (6-35); Albumin Level 4.4 g/dL (3.5-5.1); Alkaline Phosphatase 97 U/L (38-126); Anion Gap 7 mmol/L (4-12); Aspartate Amino Transferase 51 U/L (14-36); Bilirubin,Total 0.7 mg/dL (0.2-1.3); Blood Urea Nitrogen 12 mg/dL (7-17); Calcium 9.7 mg/dL (8.4-10.2); Carbon Dioxide 28 mmol/L (22-30); Chloride 101 mmol/L (98-107); Cholesterol 168 mg/dL (0-200); Estimated Glomerular Filt Rate > 60; Glucose 101 mg/dL (65-110); HDL Direct 79 mg/dL; Potassium 4.0 mmol/L (3.4-5.0); Sodium 136 mmol/L (137-145); Total Protein 8.0 g/dL (6.3-8.2); Triglycerides 141 mg/dL (<150)
[2025-03-29 19:51] LABS: Free T4 Free Thyroxine 1.35 ng/dL (0.78-2.19)
[2025-03-29 20:05] LABS: Thyroid Stimulating Hormone 1.680 uIU/mL (0.465-4.680)
[2025-03-29 20:24] LABS: Vitamin B12 915.0 pg/mL (239-931)
[2025-03-29 20:26] LABS: MALB Creatinine Ratio < 7.1 mg/g (0-30)
--- OUTSIDE RECORDS SUMMARY | 2025-03-29 20:33 | XMS_ITS | Encounter Summary ---
Author Organization [facility] Address [address] [place] [address] Care Team Providers Care Engineer Name Role Phone Unavailable Primary Care Provider [...] on file Legal Sex Female 4:47 AM SKEINER Gender Identity Not on file Sexual Orientation Not on file documented as of this encounter Plan of Treatment Not on file documented as of this encounter Visit Diagnoses Diagnosis Lumbago- Primary documented in this encounter
--- OUTSIDE RECORDS SUMMARY | 2025-03-29 20:33 | XMS_ITS | Encounter Summary ---
Author Organization [facility] Address 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
--- OUTSIDE RECORDS SUMMARY | 2025-03-29 20:35 | XMS_ITS | Clinical Summary ---
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
--- OUTSIDE RECORDS SUMMARY | 2025-03-29 20:35 | XMS_ITS | Encounter Summary ---
Author Organization [facility] Address 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
--- OUTSIDE RECORDS SUMMARY | 2025-03-29 20:36 | XMS_ITS | Encounter Summary ---
Author Organization [facility] Address 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
--- OUTSIDE RECORDS SUMMARY | 2025-03-29 20:36 | XMS_ITS | Encounter Summary ---
Author Organization [facility] Address [address] [place] [address] Care Team Providers Care Surgical Assistant Name Role Phone Unavailable Primary Care Provider Unavailabl e Encounter Details Date Type Department Care Team (Latest Contact Info) Description 04/27/1999 Outpatient Historical HIS CHRONIC PAIN [facility] Marty Ledezma MD [address] [place] [address] Myalgia and myositis, unspecified (Primary Dx) Social History Tobacco Use Types Packs/Day Years Used Date Smoking Tobacco: Never Assessed Comments Unknown Sex and Gender Information Value Date Recorded Sex Assigned at Not on file Legal Sex Female 4:47 AM CAMPUS COORDINATOR Gender Identity Not on file Sexual Orientation Not on file documented as of this encounter Plan of Treatment Not on file documented as of this encounter Visit Diagnoses Diagnosis Myalgia and myositis, unspecified- Primary Mylagia and myositis, unspecified documented in this encounter
--- OUTSIDE RECORDS SUMMARY | 2025-03-29 20:37 | XMS_ITS | Encounter Summary ---
Author Organization [facility] Address 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
--- OUTSIDE RECORDS SUMMARY | 2025-03-29 20:37 | XMS_ITS | Encounter Summary ---
Author Organization [facility] Address [address] [place] [address] Care Team Providers Care Tieing Machine Operator Name Role Phone Unavailable Primary Care [...] on file Legal Sex Female 4:47 AM HUMAN SERVICES CASE MANAGER Gender Identity Not on file Sexual Orientation Not on file documented as of this encounter Plan of Treatment Not on file documented as of this encounter Visit Diagnoses Diagnosis Lumbago- Primary documented in this encounter
--- OUTSIDE RECORDS SUMMARY | 2025-03-29 20:38 | XMS_ITS | Encounter Summary ---
Author Organization [facility] Address 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
--- OUTSIDE RECORDS SUMMARY | 2025-03-29 20:39 | XMS_ITS | Encounter Summary ---
Author Organization [facility] Address 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
--- OUTSIDE RECORDS SUMMARY | 2025-03-29 20:39 | XMS_ITS | Encounter Summary ---
Author Organization [facility] Address 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
--- OUTSIDE RECORDS SUMMARY | 2025-03-29 20:40 | XMS_ITS | Clinical Summary ---
Author Organization [facility] Address [address] [place] [address] Phone Care Team Providers Care Mortar Maker Name Role Phone Wade Meyers MD Primary Care Provider [phone] Allergies Active Allergy Reactions Criticality Noted Date [...] Comments Blood Pressure 120/82 05/30/2016 11:45 AM MOISTURE MACHINE TENDER Pulse 72 05/30/2016 11:45 AM MOISTURE MACHINE TENDER Temperature 36.2 C (97.2 F) 05/30/2016 11:45 AM MOISTURE MACHINE TENDER Respiratory Rate 16 05/30/2016 11:45 AM MOISTURE MACHINE TENDER Oxygen Saturation 96% 05/30/2016 11:45 AM MOISTURE MACHINE TENDER Inhaled Oxygen Concentration - - Weight 124.3 kg (274 lb) 2016 9:00 AM MOISTURE MACHINE TENDER Height 172.7 cm (5' 8) 2016 9:00 AM MOISTURE MACHINE TENDER Body Mass Index 41.66 2016 9:00 AM MOISTURE MACHINE TENDER Plan of Treatment Health Maintenance Due Date [...] this topic Medical Devices Implanted Type Area Regroover Device Identifier Shelf Expiration Date Model / Serial / Lot K-Wire Plain .062 - [id number] Implanted:Qty: 2 on 05/30/2016 by Edson Mays DPM at [facility] IMPLANT Right: Foot [employer] KD-062-9 / / [id number] Trilliant 0.045 Double End K-Wire Implanted:Qty: 1 on 05/30/2016 by Edson Mays DPM at [facility] Right: Toe / / 3.4 X 10mm Ht Implant Implanted:Qty: 1 on 05/30/2016 by Edson Mays DPM at [facility] Right: Toe / / Description:[facility] Insurance MEDICARE C [employer] on file Care Teams Mortar Maker Relationship Specialty Start Date End Date Wade Meyers MD [address] [place] [address] PCP - General Family Medicine 05/23/16
--- OUTSIDE RECORDS SUMMARY | 2025-03-29 20:41 | XMS_ITS | Patient Health Record ---
Author Organization [facility] Address [address] [facility] [address] [place] [address] Care Team Providers Care Belt Sander Name Role Phone Claire Byrnes Unavailable [phone] Reason For Referral No Information Medications Medication [...] Ag Card Kit In Vitro *Reorder from [employer] for eRx and Interaction Alerts* Active Montelukast [...] Medicare Replacement/ Advantage - Hmo [address] [address] [place] [address] [id number] [employer] BOTE[employer] Self - patient is the insured
--- OUTSIDE RECORDS SUMMARY | 2025-03-29 20:41 | XMS_ITS | Clinical Summary ---
Author Organization [facility] Address [address] [place] [address] Care Team Providers Care Sales Assistant Institutional Sales Name Role Phone Lenin Hirsch MD Primary Care Provider [phone] Allergies Active Allergy Reactions Criticality Noted Date [...] on file Legal Sex Female 3:21 PM BALANCE CLERK Gender Identity Not on file Sexual Orientation Not on file Last Filed Vital Signs Vital Sign Reading Time Taken Comments Blood Pressure 186/86 05/15/2024 1:25 PM BALANCE CLERK Pulse 68 05/15/2024 1:25 PM BALANCE CLERK Temperature 36.8 C (98.3 F) 05/15/2024 1:25 PM BALANCE CLERK Respiratory Rate 14 05/15/2024 1:25 PM BALANCE CLERK Oxygen Saturation 99% 05/15/2024 1:25 PM BALANCE CLERK Inhaled Oxygen Concentration - - Weight 104.3 kg (230 lb) 05/15/2024 1:25 PM BALANCE CLERK Height 167.6 cm (5' 6) 05/15/2024 1:25 PM BALANCE CLERK Body Mass Index 37.12 05/15/2024 1:25 PM BALANCE CLERK Plan of Treatment Health Maintenance Due [...] Vaccine (#1) 2025 0, 01/16/2019, 03/19/2018 Insurance [facility] MEDICARE ADVANTAGE Care Teams Sales Assistant Institutional Sales Relationship Specialty Start Date End Date Lenin Hirsch MD PCP - General Family Practice 12/03/22
== END 2025-03-29 11:06 | disposition home or self-care (01) ==
PROVIDERS: PCP Nurse Practitioner Adult Health; Visit Provider Nurse Practitioner Family
DX: E11.42 Type 2 diabetes mellitus with diabetic polyneuropathy (principal); E66.09 Other obesity due to excess calories; Z68.38 Body mass index [BMI] 38.0-38.9, adult; E78.2 Mixed hyperlipidemia; E55.9 Vitamin D deficiency, unspecified; I10 Essential (primary) hypertension
CPT/HCPCS: 36415; 80053; 80061; 82043; 82306; 82607; 84439; 84443